=== PATIENT | female | born 1945 | race Caucasian/White ===

== ENCOUNTER 2024-11-15 11:10 | Observation (INO) ==
--- NOTE | 2024-11-15 11:37 | XRay Report ---
XR chest 1V portable CLINICAL HISTORY: Chest pain, nonspecific COMPARISON STUDY: 12/13/2022 FINDINGS: Heart size and pulmonary vasculature are normal. No effusion, consolidation, or pneumothora x. IMPRESSION: No acute findings. ACT 112: Negative or not required by law. Electronically signed by: Tunde Blanc M.D. 11/15/2024 11:36 AM
[2024-11-15 11:50] LABS: Basophils # (auto) 0.08 K/uL (0.00-0.20); Basophils % (auto) 0.7 %; Eosinophils # (auto) 0.21 K/uL (0.00-0.50); Eosinophils % (auto) 1.8 %; Hematocrit (blood only) 42.8 % (37.0-47.0); Hemoglobin 14.1 g/dl (12.0-16.0); Immature Granulocytes # (auto) 0.03 K/uL (0.01-0.20); Immature Granulocytes % (auto) 0.3 %; Lymphocytes # (auto) 4.82 K/uL (1.20-3.40); Lymphocytes % (auto) 40.3 %; Mean Corpuscular Hemoglobin 31.4 pg (25.0-34.0); Mean Corpuscular Hgb Conc 32.9 g/dL (32.0-36.0); Mean Corpuscular Volume 95.3 fL (80.0-100.0); Monocytes # (auto) 0.79 K/uL (0.11-0.59); Monocytes % (auto) 6.6 %; Neutrophils # (auto) 6.03 K/uL (1.40-6.50); Neutrophils % (auto) 50.3 %; Platelet Count 257 K/uL (130-400); RDW Coefficient of Variation 13.6 % (11.5-14.5); RDW Standard Deviation 47.8 fL (36.4-46.3); Red Blood Count 4.49 M/uL (4.20-5.40); White Blood Count 11.96 K/ul (4.8-10.8)
--- NOTE | 2024-11-15 11:58 | Emergency Department Note ---
Impression & Plan Chest pain ED Provider Note NAME: ALYCIA JIMENEZ AGE: 79 SEX: Female INFORMANT: Patient ED PROVIDER(S): Daniel Cervantes MD CHIEF COMPLAINT: Chest pain PLAN: Disposition: Admitted Outpatient prescription management: none Referral: None MEDICAL DECISION MAKING: Patient presented because of chest pain. Currently pain was resolved. She did have resolution with nitroglycerin at home. She was given aspirin and Nitropaste here. Chest x-ray was unremarkable. ECG did show a left bundle branch block. This is new. Patient has a slight leukocytosis but negative laboratory panel otherwise. On reassessment she was doing well without any recurrent pain. Discussed further management in the hospital and patient was in agreement. [facility] Patient was evaluated in the ER and admitted for further management. Care/management discussed with: business intelligence manager Level of care consideration(s): After review of the information above and other included data, I feel the patient requires escalation of care to admission Triage Nursing notes: reviewed and agree them. Vital Signs: reviewed and remarkable for hypertension Additional History obtained from: none Chronic Medical/Social Conditions affecting care: Hypertension Prior/ Outside/ External records reviewed: none Differential Diagnosis: Cardiac ischemia, aortic dissection, pulmonary embolism, pneumothorax, pneumonia, pericarditis, myocarditis, esophageal rupture, GERD, cholecystitis, pancreatitis, musculoskeletal, as well as other pathologies. Diagnostics, independently interpreted by me: ECG: Twelve-lead ECG reveals a normal sinus rhythm at 60 bpm. Left axis deviation and left bundle branch block. No Sgarbossa criteria. When compared to ECG of December 13, 2022 the left bundle branch block is new. Cardiac Monitoring: Cardiac monitoring ordered by me: The patient was placed on continuous cardiac monitoring and observed. It revealed a normal sinus rhythm at 72 beats per minute without ectopy or evidence of dysrhythmia. Medical decision rules: Patient is moderate risk by HEART SCORE. Imaging studies: Chest x-ray. Findings: A chest x-ray was performed and revealed no pneumothorax, effusion, infiltrate, pulmonary edema, free air under the diaphragm, or wide mediastinum. Impression: No acute disease. HPI: 79 year old Female arrives for evaluation of chest pain. This started over the last week and occurred again this morning several times. Patient states this was the worst episode. She did take a nitroglycerin and within 5 minutes the pain went away. She states that she was doing some mild work around the house but nothing since with significant exertion. Pain did radiate to the neck and jaw. There was a mild shortness of breath. Patient notes that a month ago she did have a bronchitis/pneumonia with typical flulike symptoms. PCP treated with antibiotic and steroid. Those symptoms resolved. The patient also notes the following associated symptoms, none. Current pain is 0. Pt denies LOC, headache, fevers, chills, diaphoresis, visual changes, nausea, vomiting, abdominal pain, back pain, melena, hematochezia, urinary symptoms, numbness, weakness, lymphadenopathy, rash, or other complaints.. PAST MEDICAL HISTORY: See Below, hypertension PAST SURGICAL HISTORY: See Below, SOCIAL HISTORY: See Below, HOME MEDICATIONS: See Below ALLERGIES: See Below VITALS: See Below PHYSICAL EXAMINATION: GENERAL: Awake, alert, well-appearing, in no distress HENT: Normocephalic, atraumatic. Oropharynx unremarkable. EYES: Normal conjunctiva. Sclera non-icteric. NECK: Inspection normal. Non-tender. Supple. No nuchal rigidity. FROM. No masses. RESPIRATORY: Clear to auscultation. No wheezes. No rales. Normal respiratory effort. CARDIAC: Normal rate. Normal rhythm. No murmurs. No rubs. Extremities warm and well perfused. Pulses equal. No JVD. GI: Soft, non-distended. No tenderness to palpation. No rebound or guarding. No masses. RECTAL: Deferred. MUSCULOSKELETAL: Atraumatic. The back is symmetrical on inspection without obvious abnormality. There is no CVA tenderness to palpation. No joint edema. LOWER EXTREMITIES: Calves are equal size bilaterally and non-tender. No edema. No discoloration. NEURO: Normal sensorium. No sensory or motor deficits noted. SKIN: No rash or jaundice noted. 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 One Story Home. Other Information That Helps Us Care for You: No Feels Safe at Home: Yes Allergies Allergies Allergy/AdvReac Type Severity Reaction Status Date / Time acetaminophen [From Vicodin] Allergy Unknown Rash Unverified 11/15/24 13:19 amoxicillin Allergy Unknown HIVES Verified 11/15/24 13:19 bee venom protein (honey bee) Allergy Unknown SWELLING Verified 11/15/24 13:19 hydrocodone [From Vicodin] Allergy Unknown Rash Unverified 11/15/24 13:19 Home Meds Home Medications Medication Instructions Recorded Confirmed aspirin 81 mg tablet,delayed 81 mg PO HS 08/05/18 11/15/24 release atorvastatin 40 mg tablet (Lipitor) 40 mg PO HS 08/05/18 11/15/24 ezetimibe 10 mg tablet 10 mg PO HS 08/05/18 11/15/24 multivitamin 1 tab PO HS 08/05/18 11/15/24 pantoprazole 20 mg tablet,delayed 20 mg PO DAILYBB 08/05/18 11/15/24 release albuterol sulfate 90 mcg/actuation 2 puff inhalation QID PRN 11/15/24 11/15/24 aerosol inhaler Wheezing/Cough ascorbic acid (vitamin C) 500 mg 500 mg PO DAILY 11/15/24 11/15/24 tablet (Vitamin C) calcium carbonate 500 mg PO DAILY 11/15/24 11/15/24 cholecalciferol (vitamin D3) 25 25 mcg PO DAILY 11/15/24 11/15/24 mcg (1,000 unit) tablet (Vitamin D3) methylprednisolone 4 mg tablet 4 mg PO DAILY 11/15/24 11/15/24 metoprolol succinate 25 mg 25 mg PO HS 11/15/24 11/15/24 tablet,extended release 24 hr montelukast 10 mg tablet 10 mg PO DAILY 11/15/24 11/15/24 nitroglycerin 0.4 mg sublingual 0.4 mg sublingual DAILY PRN Chest 11/15/24 11/15/24 tablet Pain/Pressure Results & Data (ED) Vital Signs Vital Signs - 24 hr 11/15/24 11:14 11/15/24 12:02 11/15/24 12:02 Temperature 36.6 C Temperature Source Temporal Artery Scan Pulse Rate 72 Pulse Rate [Apical] 66 Pulse Strength [Apical] Normal Respiratory Rate 18 18 Respiratory Effort / Characteristics Non-Labored Spontaneous Non-Labored Spontaneous Respiratory Depth Normal Normal Blood Pressure 141/74 H Blood Pressure [Right Arm] 147/73 H Blood Pressure Mean 96 Blood Pressure Mean [Right Arm] 97 Blood Pressure Position Sitting Pulse Oximetry 98 99 96 Oxygen Delivery Method Room Air Room Air Room Air Sepsis Recent Fever Within 48 Hours No Sepsis New/Unexplained Change in Mental Status No Sepsis Action Taken by Nursing No Action Required 11/15/24 13:12 Temperature Temperature Source Pulse Rate 65 Pulse Rate [Apical] Pulse Strength [Apical] Respiratory Rate Respiratory Effort / Characteristics Respiratory Depth Blood Pressure Blood Pressure [Right Arm] Blood Pressure Mean Blood Pressure Mean [Right Arm] Blood Pressure Position Pulse Oximetry Oxygen Delivery Method Sepsis Recent Fever Within 48 Hours Sepsis New/Unexplained Change in Mental Status Sepsis Action Taken by Nursing Laboratory Data 11/15/24 11:24 11/15/24 11:24 Lab Results 11/15/24 Range/Units 11:24 WBC 11.96 H (4.8-10.8) K/ul RBC 4.49 (4.20-5.40) M/uL Hgb 14.1 (12.0-16.0) g/dl Hct 42.8 (37.0-47.0) % MCV 95.3 (80.0-100.0) fL MCH 31.4 (25.0-34.0) pg MCHC 32.9 (32.0-36.0) g/dL RDW Std Deviation 47.8 H (36.4-46.3) fL RDW Coeff of Brayan 13.6 (11.5-14.5) % Plt Count 257 (130-400) K/uL MPV 10.0 (9.4-12.4) fL Immature Gran % (Auto) 0.3 % Neut % (Auto) 50.3 % Lymph % (Auto) 40.3 % [place] % (Auto) 6.6 % Eos % (Auto) 1.8 % Baso % (Auto) 0.7 % Neut # (Auto) 6.03 (1.40-6.50) K/uL Lymph # (Auto) 4.82 H (1.20-3.40) K/uL [place] # (Auto) 0.79 H (0.11-0.59) K/uL Eos # (Auto) 0.21 (0.00-0.50) K/uL Baso # (Auto) 0.08 (0.00-0.20) K/uL Immature Gran # (Auto) 0.03 (0.01-0.20) K/uL Sodium 140 (136-145) mmol/L Potassium 3.6 (3.5-5.1) mmol/L Chloride 105 (98-107) mmol/L Carbon Dioxide 30 (21-32) mmol/L Anion Gap 5 (3-11) BUN 19 (6-23) mg/dl Creatinine 0.90 (0.6-1.2) mg/dl Est Cr Clr Drug Dosing 37.8 ml/min eGFR 65.03 BUN/Creatinine Ratio 21.1 H (10-20) Glucose 103 H (70-99(Fasting)) mg/dl Calcium 9.2 (8.6-10.3) mg/dl Total Bilirubin 0.7 (0.2-1.0) mg/dl AST 19 (13-39) U/L ALT 30 (7-52) U/L Alkaline Phosphatase 59 (34-104) U/L Troponin I High Sens < 2.3 (0-14) pg/ml Total Protein 6.2 (6.0-8.3) gm/dl Albumin 4.0 (3.4-5.0) gm/dl Globulin 2.2 L (2.5-4.0) gm/dl Albumin/Globulin Ratio 1.8 (0.9-2) Lipase 49 (11-82) U/L Administered Medications Discontinued Medications Aspirin (Aspirin Chew 324 Mg) 324 mg PO NOW STA Stop: 11/15/24 11:46 Last Admin: 11/15/24 11:59 Dose: 324 mg Documented By: JUSTINA Nitroglycerin (Nitroglycerin 2% Ointment 30gm Tube) 0.5 inch EXT NOW STA Stop: 11/15/24 11:46 Last Admin: 11/15/24 11:59 Dose: 0.5 inch Documented By: GGG Imaging Data Radiologist's Impression: Chest X-Ray 11/15/24 11:14 XR chest 1V portable CLINICAL HISTORY: Chest pain, nonspecific COMPARISON STUDY: 12/13/2022 FINDINGS: Heart size and pulmonary vasculature are normal. No effusion, consolidation, or pneumothorax. IMPRESSION: No acute findings. ACT 112: Negative or not required by law. Electronically signed by: Tunde Blanc M.D. 11/15/2024 11:36 AM Discharge Plan Visit Data Chief Complaint: Chest Pain Stated Complaint: CHEST PAIN, NECK AND JAW PAIN, TOOK NITRO ED Provider: Daniel Cervantes Discharge Problem: Chest pain Patient Disposition: Admitted As Inpatient Discharge Instructions Interventions: ED Discharge Assessment Last Done: 11/15/24 15:18
[2024-11-15] MEDS: NITROGLYCERIN 2% OINTMENT 30GM TUBE EXT STA (11:59)
[2024-11-15] MEDS: ASPIRIN CHEW 324 MG PO STA (11:59)
[2024-11-15 12:06] LABS: Alanine Aminotransferase 30 U/L (7-52); Albumin Globulin Ratio 1.8 (0.9-2); Alkaline Phosphatase 59 U/L (34-104); Anion Gap 5 (3-11); Aspartate Aminotransferase 19 U/L (13-39); BUN Creatinine Ratio 21.1 (10-20); Bilirubin,Total 0.7 mg/dl (0.2-1.0); Blood Urea Nitrogen 19 mg/dl (6-23); Calcium 9.2 mg/dl (8.6-10.3); Carbon Dioxide 30 mmol/L (21-32); Chloride 105 mmol/L (98-107); Creatinine Clr Calc Pharmacy 37.8 ml/min; Globulin 2.2 gm/dl (2.5-4.0); Glucose 103 mg/dl (70-99(Fasting)); Lipase 49 U/L (11-82); Potassium 3.6 mmol/L (3.5-5.1); Sodium 140 mmol/L (136-145); Total Protein 6.2 gm/dl (6.0-8.3)
[2024-11-15 12:13] LABS: Troponin I High Sensitivity < 2.3 pg/ml (0-14)
--- NOTE | 2024-11-15 13:49 | Electrocardiogram Report ---
Test Reason : Blood Pressure : */* mmHG Vent. Rate : 68 BPM Atrial Rate : 68 BPM P-R Int : 156 ms QRS Dur : 152 ms QT Int : 418 ms P-R-T Axes : 30 -31 111 degrees QTcB Int : 444 ms Normal sinus rhythm Left axis deviation Left bundle branch block Abnormal ECG When compared with ECG of 13-Dec-2022 10:13, Left bundle branch block is now Present Confirmed by Maxi Bui ([id number]) on 11/15/2024 1:49:06 PM Referred By: Confirmed By: Maxi Bui
--- NOTE | 2024-11-15 14:12 | History & Physical Report ---
Date of Service November 15, 2024 Assessment & Plan (1) Chest pain: (2) LBBB (left bundle branch block): (3) Hyperlipidemia: Plan This is a 79 year old F who has a significant PMH of HLD, HTN, GERD who presents to ED 2/2 chest pain off and on over the last week. #Chest Pain #New LBBB admit to tele for cardiac monitoring and ACS r/o cycle trops obtain resting echo consult cardiology keep NPO after midnight for possible procedure lipid panel, a1c in am. 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 Branch Dispo: admit to tele for ACS r/o Pt was seen and examined in collaboration with Dr. De Leon, please see addendum I spent a total of 45 minutes coordinating, documenting and providing care for this patient excluding time spent in the performance of separately billed services or time spent by another provider/QHP. History of Present Illness Chief Complaint: Chest pain off and on for a week. Primary Care Provider: Joya Branch This is a 79 year old F who has a significant PMH of HLD, HTN, GERD who presents to ED 2/2 chest pain off and on over the last week. Pt reports CP off and on for the last week. SHe states today it was so severe and different that she wanted to get checked out. She denies hx of CAD and reports a normal stress test a few years ago. She describes it as a muscle spasm. Her pain this morning started when she was sitting at her desk paying bills. She got sweaty and pain that went from her chest to her neck/jaw and teeth. She did not notice any pain in her shoulder. She also feels a heavy/tight sensation. Today her sx lasted around 10 minutes. Sx did not last longer than 30 mins. She felt dizzy/lightheaded and SOB during the event. Pt received asa and nitropaste in the ED. She also took a SL nitro at home and sx improved. In ED she was hemodynamically stable. Her initial troponin was negative. EKG revealed NSR, LAD, LBBB. The LBBB is new compared to previous ECG. Currently in ED she denies chest pain. She has a slight headache from the nitro. She denies any recent f/c/s, cough, n/v/d, abd pain or change in her bowel and urinary habits. Most recently pt was tx with antibiotic and steroids due to illness. Hx was obtained from pt and external chart review. Allergies Allergy/AdvReac Type Severity Reaction Status Date / Time acetaminophen [From Vicodin] Allergy Unknown Rash Unverified 11/15/24 13:19 amoxicillin Allergy Unknown HIVES Verified 11/15/24 13:19 bee venom protein (honey bee) Allergy Unknown SWELLING Verified 11/15/24 13:19 hydrocodone [From Vicodin] Allergy Unknown Rash Unverified 11/15/24 13:19 Home Medications Medication Instructions Recorded Confirmed Type aspirin 81 mg tablet,delayed 81 mg PO HS 08/05/18 11/15/24 History release atorvastatin 40 mg tablet (Lipitor) 40 mg PO HS 08/05/18 11/15/24 History ezetimibe 10 mg tablet 10 mg PO HS 08/05/18 11/15/24 History multivitamin 1 tab PO HS 08/05/18 11/15/24 History pantoprazole 20 mg tablet,delayed 20 mg PO DAILYBB 08/05/18 11/15/24 History release albuterol sulfate 90 mcg/actuation 2 puff inhalation QID PRN 11/15/24 11/15/24 History aerosol inhaler Wheezing/Cough ascorbic acid (vitamin C) 500 mg 500 mg PO DAILY 11/15/24 11/15/24 History tablet (Vitamin C) calcium carbonate 500 mg PO DAILY 11/15/24 11/15/24 History cholecalciferol (vitamin D3) 25 25 mcg PO DAILY 11/15/24 11/15/24 History mcg (1,000 unit) tablet (Vitamin D3) methylprednisolone 4 mg tablet 4 mg PO DAILY 11/15/24 11/15/24 History metoprolol succinate 25 mg 25 mg PO HS 11/15/24 11/15/24 History tablet,extended release 24 hr montelukast 10 mg tablet 10 mg PO DAILY 11/15/24 11/15/24 History nitroglycerin 0.4 mg sublingual 0.4 mg sublingual DAILY PRN Chest 11/15/24 11/15/24 History tablet Pain/Pressure Past Med/Surg History Problem List LBBB (left bundle branch block) Chest pain (Acute) Medical History Syncope (07/05/11) Hyperlipidemia (07/05/11) Family History Other No pertinent family history Social History Smoking Status: Never smoker Hx Alcohol Use: No Hx Substance Use: No Preferred Language: Maldivian Feels Safe at Home: Yes Review of Systems Review of Systems: All systems reviewed & are unremarkable except as noted in HPI & below Physical Exam Physical Exam: please refer to Dr. De Leon addendum for physical exam findings. Results & Data Results & Data Vital Signs (Past 12 Hours) Vital Signs Temp Pulse Pulse Resp BP BP Pulse Ox 11/15/24 14:07 69 18 120/77 99 11/15/24 13:12 65 11/15/24 12:02 96 11/15/24 12:02 66 18 147/73 H 99 11/15/24 11:14 36.6 C 72 18 141/74 H 98 O2 Del Method 11/15/24 14:07 Room Air 11/15/24 13:12 11/15/24 12:02 Room Air 11/15/24 12:02 Room Air 11/15/24 11:14 Room Air Laboratory Results I have independently reviewed and interpreted patient's admitting labs including CBC, CMP, mag, lipase and troponin. Diagnostic Findings Chest X-Ray 11/15/24 11:14 XR chest 1V portable CLINICAL HISTORY: Chest pain, nonspecific COMPARISON STUDY: 12/13/2022 FINDINGS: Heart size and pulmonary vasculature are normal. No effusion, consolidation, or pneumothorax. IMPRESSION: No acute findings. ACT 112: Negative or not required by law. Electronically signed by: Tunde Blanc M.D. 11/15/2024 11:36 AM Medications Administered Medication List Discontinued Medications Aspirin (Aspirin Chew 324 Mg) 324 mg PO NOW STA Stop: 11/15/24 11:46 Last Admin: 11/15/24 11:59 Dose: 324 mg Documented By: JUSTINA Nitroglycerin (Nitroglycerin 2% Ointment 30gm Tube) 0.5 inch EXT NOW STA Stop: 11/15/24 11:46 Last Admin: 11/15/24 11:59 Dose: 0.5 inch Documented By: JUSTINA ECG Additional Comments: I have independently reviewed and interpreted patient's admitting EKG which revealed: NSR, 68bpm, qtc 444ms, new LBBB, LAD COVID-19 Results Results COVID-19 Adm Lab Results: RBC 4.49 M/uL (4.20-5.40) 11/15/24 WBC 11.96 K/ul (4.8-10.8) H 11/15/24 Hgb 14.1 g/dl (12.0-16.0) 11/15/24 Hct 42.8 % (37.0-47.0) 11/15/24 Plt Count 257 K/uL (130-400) 11/15/24 Neutrophils (%) (Auto) 50.3 % 11/15/24 Lymphocytes (%) (Auto) 40.3 % 11/15/24 Monocytes # (Auto) 0.79 K/uL (0.11-0.59) H 11/15/24 Eosinophils # (Auto) 0.21 K/uL (0.00-0.50) 11/15/24 Immature Granulocyte % (Auto) 0.3 % 11/15/24 Neutrophils # (Auto) 6.03 K/uL (1.40-6.50) 11/15/24 Lymphocytes # (Auto) 4.82 K/uL (1.20-3.40) H 11/15/24 Monocytes # (Auto) 0.79 K/uL (0.11-0.59) H 11/15/24 Eosinophils # (Auto) 0.21 K/uL (0.00-0.50) 11/15/24 Basophils # (Auto) 0.08 K/uL (0.00-0.20) 11/15/24 Immature Granulocyte # (Auto) 0.03 K/uL (0.01-0.20) 5 Na 140 mmol/L (136-145) 11/15/24 K 3.6 mmol/L (3.5-5.1) 11/15/24 Cl 105 mmol/L (98-107) 11/15/24 CO2 30 mmol/L (21-32) 11/15/24 Anion Gap 5 (3-11) 11/15/24 BUN 19 mg/dl (6-23) 11/15/24 Creatinine 0.90 mg/dl (0.6-1.2) 11/15/24 BUN/Creatinine Ratio 21.1 (10-20) H 11/15/24 Glucose Level 103 mg/dl (70-99(Fasting)) H 11/15/24 Ca 9.2 mg/dl (8.6-10.3) 11/15/24 Total Bilirubin 0.7 mg/dl (0.2-1.0) 11/15/24 AST/SGOT 19 U/L (13-39) 11/15/24 ALT/SGPT 30 U/L (7-52) 11/15/24 Alkaline Phosphatase 59 U/L (34-104) 11/15/24 Total Protein 6.2 gm/dl (6.0-8.3) 11/15/24 Albumin 4.0 gm/dl (3.4-5.0) 11/15/24 Globulin 2.2 gm/dl (2.5-4.0) L 11/15/24 Albumin/Globulin Ratio 1.8 (0.9-2) 11/15/24 Chest X-Ray 11/15/24 Code Status & VTE Plan Code Status FULL CODE VTE Prophylaxis Plan VTE Prophylaxis will be ordered: Yes Supervising Physician Co-Signing Physician Notes Patient is a 79-year-old female with history of hypertension, hyperlipidemia, GERD presents with ongoing chest pain since at least 1 year duration. Patient's chest pain is been more frequent over the last week. She states having significant chest pain this morning which she describes as left-sided heaviness, radiating to jaw, neck. She did admit to have associated dizziness with mild shortness of breath. She received aspirin and nitro in ED, currently chest pain resolved. Please review HPI for complete details of presentation. I personally reviewed blood work and imaging studies. Blood work suggestive of leukocytosis 12.96K. Initial troponin negative. EKG showed left bundle branch block, new when compared to prior EKGs. Please review HPI for complete details of presentation. Physical Exam: Vitals signs as noted above General Appearance:Moderately built and nourished, no apparent distress Head: normocephalic, Atraumatic Eyes: normal inspection, EOMI Neck: supple, Trachea midline Respiratory/Chest: Normal breath sounds, CTA, No accessory muscle use Cardiovascular: S1, S2, No murmur Abdomen/GI:Soft, Non tender, Bowel sounds present Extremities/Musculoskeletal:normal inspection, no edema Neurologic/Psych:AAOX3, grossly no focal neurological deficits,+decreased hearing Skin: normal color, warm Chest pain Left bundle branch block Hypertension GERD Initial troponin negative Agree with checking resting echo N.p.o. after midnight for stress test tomorrow Cardiology consulted Continue aspirin, Lipitor, metoprolol Trend troponins, consider IV heparin if troponin elevation Repeat EKG with chest pain Update lipid panel, check HbA1c I personally interviewed and examined at bedside. Patient's care is coordinated with Erica Pacheco PA-C. I have reviewed the advanced practitioner's documentation, and I agree with plan of care. Please refer to the documentation above for details of patient's presentation and for discussion of other issues. I spent a total [id number] coordinating, documenting, and providing care for this patient excluding time spent in the performance of separately billed services or time spent by another provider/QHP.
[2024-11-15] MEDS ORDERED: POLYETHYLENE (MIRALAX) 17 GM PACK PO PRN (16:14)
--- NOTE | 2024-11-15 16:32 | Cardiology Consultation ---
Date of Consultation November 15, 2024 Assessment & Plan (1) Chest pain: (2) LBBB (left bundle branch block): (3) Hyperlipidemia: Plan Patient is 79-year-old female with multiple cardiovascular risk factors with prior history of atypical chest pain now presents with symptoms more consistent with exertional angina now with worsening symptoms at low level activity and rest. Symptoms today with mild diaphoresis and lightheadedness relieved by nitroglycerin. EKG with new left bundle branch block. Initial troponins negative. Echocardiogram without wall motion abnormality. Impression: 1. Chest pain: Initially exertional now with low-level activity and at rest. 2. New left bundle branch block 3. Dyslipidemia Recommendations: Discussed above findings in detail with patient. Given near rest symptoms and crescendo nature and complaints would recommend proceeding wit h diagnostic coronary angiography. Left bundle branch block limits evaluation by stress testing and EKG evaluation with future complaint. Procedure explained and patient agrees. Will be kept n.p.o. after midnight History of Present Illness Reason for Consultation: Exertional chest pain, new left bundle branch block [facility] Attending Physician: Ulises De Leon MD History of Present Illness Patient is a 79-year-old female with multiple cardiovascular risk factors including hypertension, longstanding hyperlipidemia and family history of premature coronary disease as well as prior cardiac catheterization with mild nonobstructive disease in 2011. Patient presented to the ER for further evaluation noting gradually increasing exertional dyspnea and chest pressure and chest tightness radiating to both shoulders with ambulation. Symptoms consistently reproduced by exercise with rare episodes at rest. Patient with more profound episode this morning while sitting working. Experienced symptoms of chest pressure as well as mild diaphoresis and lightheadedness. Symptoms did respond to sublingual nitroglycerin. Due to complaints patient sought ER evaluation with initial EKG left bundle branch block configuration (new) Currently asymptomatic. Has been treated recently for upper respiratory infection with antibiotic as wel l as corticosteroid. No bleeding issues no melena medic easier dysuria hematuria. Currently no fevers or chills. No orthopnea or worsening peripheral edema. No prior known history of conduction system disease. Last stress testing 2019 Allergies Allergy/AdvReac Type Severity Reaction Status Date / Time acetaminophen [From Vicodin] Allergy Unknown Rash Unverified 11/15/24 13:19 amoxicillin Allergy Unknown HIVES Verified 11/15/24 13:19 bee venom protein (honey bee) Allergy Unknown SWELLING Verified 11/15/24 13:19 hydrocodone [From Vicodin] Allergy Unknown Rash Unverified 11/15/24 13:19 Home Medications Medication Instructions Recorded Confirmed Type aspirin 81 mg tablet,delayed 81 mg PO HS 08/05/18 11/15/24 History release atorvastatin 40 mg tablet (Lipitor) 40 mg PO HS 08/05/18 11/15/24 History ezetimibe 10 mg tablet 10 mg PO HS 08/05/18 11/15/24 History multivitamin 1 tab PO HS 08/05/18 11/15/24 History pantoprazole 20 mg tablet,delayed 20 mg PO DAILYBB 08/05/18 11/15/24 History release albuterol sulfate 90 mcg/actuation 2 puff inhalation QID PRN 11/15/24 11/15/24 History aerosol inhaler Wheezing/Cough ascorbic acid (vitamin C) 500 mg 500 mg PO DAILY 11/15/24 11/15/24 History tablet (Vitamin C) calcium carbonate 500 mg PO DAILY 11/15/24 11/15/24 History cholecalciferol (vitamin D3) 25 25 mcg PO DAILY 11/15/24 11/15/24 History mcg (1,000 unit) tablet (Vitamin D3) methylprednisolone 4 mg tablet 4 mg PO DAILY 11/15/24 11/15/24 History metoprolol succinate 25 mg 25 mg PO HS 11/15/24 11/15/24 History tablet,extended release 24 hr montelukast 10 mg tablet 10 mg PO DAILY 11/15/24 11/15/24 History nitroglycerin 0.4 mg sublingual 0.4 mg sublingual DAILY PRN Chest 11/15/24 11/15/24 History tablet Pain/Pressure Patient History Medical History Syncope (07/05/11) Hyperlipidemia (07/05/11) Family History Other No pertinent family history Social History Smoking Status: Never smoker Hx Alcohol Use: No Hx Substance Use: No Preferred Language: [place] Feels Safe at Home: Yes Physical Exam Constitutional: well developed; no acute distress Eyes: PERRL, conjunctivae normal, anicteric sclerae ENMT: external ear and nose normal, oropharynx normal Neck: trachea midline, no thyromegaly Respiratory: normal respiratory effort, lungs clear to auscultation Cardiovascular: Rate/Rhythm: regular rate and regular rhythm Heart Sounds: normal S1 and normal S2 Vessels: femoral pulses present and radial pulses present; no JVD and no femoral bruit Extremities: no edema Gastrointestinal (Abdomen): normal bowel sounds, soft, nontender, no hepatosplenomegaly Musculoskeletal: no cyanosis or clubbing, extremities motor strength 5/5 Results & Data Vital Signs (Past 12 Hours) Vital Signs Temp Pulse Pulse Resp BP BP Pulse Ox 11/15/24 14:07 69 18 120/77 99 11/15/24 13:12 65 11/15/24 12:02 96 11/15/24 12:02 66 18 147/73 H 99 11/15/24 11:14 36.6 C 72 18 141/74 H 98 O2 Del Method 11/15/24 14:07 Room Air 11/15/24 13:12 11/15/24 12:02 Room Air 11/15/24 12:02 Room Air 11/15/24 11:14 Room Air Laboratory Results Laboratory Results - last 24 hr 11/15/24 11/15/24 11:24 14:37 WBC 11.96 H RBC 4.49 Hgb 14.1 Hct 42.8 MCV 95.3 MCH 31.4 MCHC 32.9 RDW Std Deviation 47.8 H RDW Coeff of Brayan 13.6 Plt Count 257 MPV 10.0 Immature Gran % (Auto) 0.3 Neut % (Auto) 50.3 Lymph % (Auto) 40.3 [place] % (Auto) 6.6 Eos % (Auto) 1.8 Baso % (Auto) 0.7 Neut # (Auto) 6.03 Lymph # (Auto) 4.82 H [place] # (Auto) 0.79 H Eos # (Auto) 0.21 Baso # (Auto) 0.08 Immature Gran # (Auto) 0.03 Sodium 140 Potassium 3.6 Chloride 105 Carbon Dioxide 30 Anion Gap 5 BUN 19 Creatinine 0.90 Est Cr Clr Drug Dosing 37.8 eGFR 65.03 BUN/Creatinine Ratio 21.1 H Glucose 103 H Calcium 9.2 Total Bilirubin 0.7 AST 19 ALT 30 Alkaline Phosphatase 59 Troponin I High Sens < 2.3 4.0 Total Protein 6.2 Albumin 4.0 Globulin 2.2 L Albumin/Globulin Ratio 1.8 Lipase 49
--- OUTSIDE RECORDS SUMMARY | 2024-11-15 19:18 | External Medical Summary ---
Author Name Unknown Address Unknown Organization K01:[facility] - [address] [place] [address] Laboratory Report Ordering Provider Test Date Status LANA GRAY 08/16/2024 08:37:07 Final Observation Date Value Abnormality Reference (Units ) Status LDL, (direct) 08/16/2024 08:37:07 78 <=129 (mg/dL) Final LDL Cholesterol Reference Ra nges (mg/dL):
<70 Target level for high risk ASCVD patient
<100 Optimal for general population
100-129 Near optimal for general population
130-159 Borderline high
160-189 High
>=190 Very high Performing Location [facility] - [address] [place] [address]
--- OUTSIDE RECORDS SUMMARY | 2024-11-15 19:18 | External Medical Summary ---
Author Name Unknown Address Unknown Organization [id number][place] [facility] [place] [address] [facility] [address] Laboratory Report Ordering Provider Test Date Status LANA GRAY 08/16/2024 08:37:07 Final Observation Date Value Abnormality Reference (Units ) Status BUN 08/16/2024 08:37:07 16 6-20 (mg/dL) Final Creatinine 08/16/2024 08:37:07 1.0 0.5-1.0 (mg/dL) Final Glomerular filtration rate/1.73 sq M.predicted [Volume Rate/Area] in Serum, Plasma or Blood by Creatinine-based formula (CKD-EPI) 08/16/2024 08:37:07 61 >=60 (mL/min) Final eGFR is calculated based on the CKD-EPI 2020 equation. Sodium 08/16/2024 08:37:07 142 135-146 (m mol/L) Final Potassium 08/16/2024 08:37:07 4.7 3.5-5.1 (m mol/L) Final Cl 08/16/2024 08:37:07 105 98-107 (mm ol/L) Final CO2 08/16/2024 08:37:07 26 22-32 (mmo l/L) Final Anion gap 08/16/2024 08:37:07 11 7-15 (mmol /L) Final Glucose 08/16/2024 08:37:07 105 70-120 (mg /dL) Final Albumin 08/16/2024 08:37:07 4.1 3.8-5.0 (g /dL) Final AST (Aspartate aminotransferase) 08/16/2024 08:37:07 18 10-35 (U/L) Final Alk Phos 08/16/2024 08:37:07 85 35-130 (U/ L) Final Bilirubin, Total 08/16/2024 08:37:07 0.5 <=1 .2 (mg/dL) Final Calcium 08/16/2024 08:37:07 9.4 8.4-10.2 ( mg/dL) Final Protein 08/16/2024 08:37:07 6.1 6.0-8.3 (g /dL) Final ALT (Alanine aminotransferase) 08/16/2024 08:37:07 29 10-35 (U/L) Final Performing [place] [facility] [place] [address] [facility] [address]
--- OUTSIDE RECORDS SUMMARY | 2024-11-15 19:18 | External Medical Summary | Summary of Care ---
Author Name Unknown Organization [facility] Address [address] [place] [address] Phone [phone] Care Team Providers Care Director Of Clinical Education Name Role Phone Meg Branch MD Primary Care Provider [phone] Encounter Details Date Type Department Care Team (Late st Contact Info) Description 11/12/2024 Population Health External Data Unspecified Department Allergies Active Allergy Reactions Criticality Noted Date Comments Amoxicillin 02/12/2009 Rash Bee Venom Edema Other Medium 03/20/2013 Hydrocodone-Acetaminophen 09/06/2018 documented as of this encounter (statuses as of 11/12/2024) Medications ASPIRIN TABS 81 MG ORIndications:D yslipidemia, goal LDL below 160 one tab by mouth daily 34 5 1 Active CALCIUM 1200 7462-6366 MG-UNIT PO CHEW one tablet daily Active EPIPEN 0.3 MG/0.3ML (1:1000) IM DEVIIndications :Toxic effect of venom(989.5) Inject for life-threatening allergy symptoms and go immediately to the Emergency Room. 1 3 8 Active Additional Information Patient not taking.Reported on 03/19/2020 MULTIVITAMINS PO TABS daily Active ezetimibe (ZETIA) 10 MG Tablet Take 1 Tablet by mouth in the morning. Active pantoprazole (PROTONIX) 40 MG TBEC Take 1 Tablet by mouth in the morning. Active atorvaSTATin (LIPITOR) 40 MG Tablet Take 1 Tablet by mouth in the morning. Active metoprolol tartrate (LOPRESSOR) 25 MG Tablet Take 1 Tablet by mouth in the morning. Active Pantoprazole Sodium 20 MG Oral Tablet Delayed Release (Protonix) take one tablet by mouth one half hour before breakfast as needed 90 Tablet 1 09/10/2024 3:19 PM EST 4 Active Atorvastatin Calcium 40 MG Oral Tablet (Lipitor) take one tablet by mouth at bedtime 90 Tablet 1 08/23/2024 1:40 PM EDT 4 Active Ezetimibe 10 MG Oral Tablet (Zetia) take one tablet by mouth at bedtime 90 Tablet 1 09/10/2024 2:58 PM EST 4 Active Metoprolol Succinate ER 25 MG Oral Tablet Extended Release 24 Hour (toPROL XL) TAKE ONE TABLET BY MOUTH AT BEDTIME 90 Tablet 1 09/26/2024 9:18 AM EST 4 Active Montelukast Sodium 10 MG Oral Tablet (Singulair) take one tablet by mouth in the evening for allergies 90 Tablet 1 08/22/2024 10:23 AM EDT 4 Active documented as of this encounter (statuses as of 11/12/2024) Active Problems Problem Noted Date Diagnosed Date Meningioma 07/19/2012 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 Toxic effect of venom 07/22/2008 Overview (07/27/2016): large local reactions only. ICD-10 update of inactive term DIFFUS CYSTIC MASTOPATHY Uterine leiomyoma Headache Overview (01/14/2016): ICD-10 update of inactive term Chest pain documented as of this encounter (statuses as of 11/12/2024) Resolved Problems Problem Noted Date Diagnosed Date Resolved Date PURE HYPERCHOLESTEROLEM 09/23 Overview (10/02/2009): Per Lipid Taxonomy. documented as of this encounter (statuses as of 11/12/2024) Immunizations Name Administration Dates Next Due Pneumococcal Polysaccharide PPV23 (Pneumovax) documented as of this encounter Social History Tobacco Use Types Packs/Day Years Used Date Smoking Tobacco: Never Smokeless Tobacco: Never Comments:no passive smoke Alcohol Use Standard Drinks/Week Comments Yes 0 (1 standard drink = 0.6 oz pur e alcohol) 1-2 drinks/week Comments No Sex and Gender Information Value Date Recorded Sex Assigned at Female 05/06/2023 1:51 PM EDT Legal Sex Female 5:26 AM EST Gender Identity Female 05/06/2023 1:51 PM EDT Sexual Orientation Straight 11/21/2023 4: 44 PM EST documented as of this encounter Functional Status * Are you deaf or do you have serious difficulty hearing? Answer Date of Assessment Author No 09/27/2018 8:00 AM Johana Lorenz GERALD * Are you blind or do you have serious difficulty seeing, even when wearing glasses? Answer Date of Assessment Author No 09/27/2018 8:00 AM Johana Lorenz GERALD * Do you have serious difficulty walking or climbing stairs? (5 years old or older) Answer Date of Assessment Author No 09/27/2018 8:00 AM Johana Lorenz GERALD * Do you have difficulty dressing or bathing? (5 years old or older) Answer Date of Assessment Author No 09/27/2018 8:00 AM Johana Lorenz GERALD * Because of a physical, mental, or emotional condition, do you have difficulty doing errands alone such as visiting a doctors office or shopping? (15 years old or older) Answer Date of Assessment Author No 09/27/2018 8:00 AM Johana Lorenz GERALD documented as of this encounter Mental Status * Because of a physical, mental, or emotional condition, do you have serious difficulty concentrating, remembering, or making decisions? (5 years old or older) Answer Entry Date Author No 09/27/2018 8:00 AM Johana Lorenz GERALD documented in this encounter Plan of Treatment Health Maintenance Due Date Last Done Comments Depression Screening 1957 Hepatitis C Screening 1963 DTap/Tdap Vaccines (1 - Tdap) 1964 Zoster Vaccines (1 of 2) 1995 Pneumococcal Vaccine: 50+ Years (2 of 2 - PCV) 07/24/2011 07/24/2010 COVID-19 Vaccine (2023- season) 2024 Influenza Vaccine (FLU shot) (#1) 2024 DXA Scan 02/28/2030 02/28/2023, 050 05/2023, 08/25/2020, Additional history exists HPV (Gardasil) Vaccine Aged Out No lo nger eligible based on patient's age to complete this topic Hepatitis B Vaccine Aged Out No longe r eligible based on patient's age to complete this topic MENINGOCOCCAL (MENACTRA/MENVEO) Aged Out No longer eligible based on patient's age to complete this topic documented as of this encounter Medical Devices Implanted Type Area Auto Body Mechanic Device Identifier Shelf Expiration Date Model / Serial / Lot Lens Li61ao 13.00mm 23.50 - [id number] - [id number] Implanted:Qty: 1 on 02/16/2024 by Channing Bell MD at OR [facility] Left: Eye [employer] 08/23/2028 [id number] / [id number] / [id number] Lens Li61ao 13.00mm 23.50 - [id number] - [id number] Implanted:Qty: 1 on 02/23/2024 by Channing Bell MD at OR [facility] Right: Eye [employer] 08/23/2028 [id number] / [id number] / [id number] documented as of this encounter Advance Directives * Full Code (Latest Code Status on File) Date Activated Date Inactivated Comments 02/23/2024 8:00 AM 02/23/2024 1:49 PM This order ref lects the patients wishes and were consensually agreed upon. Question Answer Comments Discussion of Advance Directives occurred with: Patient Does the patient have a Living Will? No Does the patient have Health Care Power of Attor yenifer? No * Full Code Date Activated Date Inactivated Comments 02/16/2024 2:00 PM 02/16/2024 8:18 PM This order r eflects the patients wishes and were consensually agreed upon. Question Answer Comments Discussion of Advance Directives occurred with: Patient Does the patient have a Living Will? No Does the patient have Health Care Power of Attor yenifer? No Care Teams Director Of Clinical Education Relationship Specialty Start Date End Date Meg Branch MD [address] [place] [address] [place] [id number] PCP - General 09/22/01 documented as of this encounter
--- OUTSIDE RECORDS SUMMARY | 2024-11-15 19:18 | External Medical Summary ---
Author Name Unknown Address Unknown Organization K01:[facility] [place] [address] [place] [address] Laboratory Report Ordering Provider Test Date Status JAMIR SANCHEZ 08/16/2024 08:37:07 Final Observation Date Value Abnormality Reference (Units ) Status MYCODE SPECIMEN-SST 08/16/2024 08:37:07 Freezing of extracted DNA, whole blood and/or serum. Final Performing Location [facility] [place] [address] [facility] [address]
--- OUTSIDE RECORDS SUMMARY | 2024-11-15 19:18 | External Medical Summary | Summary of Care ---
Author Name Unknown Organization [facility] Address [address] [place] [address] Phone [phone] Care Team Providers Care Panel Machine Tender Name Role Phone Meg Branch MD Primary Care Provider [phone] Reason for Visit * Reason Comments Outpatient Testing Encounter Details Date Type Department Care Team (Late st Contact Info) Description 08/16/2024 8:30 AM EDT Laboratory Laboratory [address] [place] [id number] [place] [id number] [employer] Other*[id number]; Dyslipidemia, goal LDL below 160; HTN, goal below 140/90 Allergies Active Allergy Reactions Criticality Noted Date Comments Amoxicillin 02/12/2009 Rash Bee Venom Edema Other Medium 03/20/2013 Hydrocodone-Acetaminophen 09/06/2018 documented as of this encounter (statuses as of 08/16/2024) Medications Medication Sig Dispensed Refills Start Date End Date Status ASPIRIN TABS 81 MG ORIndications:Dysli pidemia, goal LDL below 160 one tab by mouth daily 34 5 04/06/2001 Active CALCIUM 1200 4896-6043 MG-UNIT PO CHEW one tablet daily Active EPIPEN 0.3 MG/0.3ML (1:1000) IM DEVIIndications:Tox ic effect of venom(989.5) Inject for life-threatening allergy symptoms and go immediately to the Emergency Room. 1 3 07/22/2008 Active Additional Information Patient not taking.Reported on [...] Tablet by mouth in the morning. Active Atorvastatin Calcium 40 MG Oral Tablet (Lipitor) take one tablet by mouth at bedtime 90 Tablet 1 03/23/2024 Active Ezetimibe 10 MG Oral Tablet (Zetia) take one tablet by mouth at bedtime 90 Tablet 1 03/23/2024 Active Metoprolol Succinate ER 25 MG Oral Tablet Extended Release 24 Hour (toPROL XL) TAKE ONE TABLET BY MOUTH AT BEDTIME 90 Tablet 1 03/23/2024 Active Pantoprazole Sodium 20 MG Oral Tablet Delayed Release (Protonix) take one tablet by mouth one half hour before breakfast as needed 90 Tablet 1 03/23/2024 Active Montelukast Sodium 10 MG Oral Tablet (Singulair) take one tablet by mouth in the evening for allergies 90 Tablet 1 05/22/2024 Active documented as of this encounter (statuses as of 08/16/2024) Active Problems Problem Noted Date Diagnosed Date Meningioma 07/19/2012 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 Toxic effect of venom 07/22/2008 Overview: large local reactions only. ICD-10 update of inactive term DIFFUS CYSTIC MASTOPATHY Uterine leiomyoma Headache Overview: ICD-10 update of inactive term Chest pain documented as of this encounter (statuses as of 08/16/2024) Resolved Problems Problem Noted Date Diagnosed Date Resolved Date PURE HYPERCHOLESTEROLEM 09/23 Overview: Per Lipid Taxonomy. documented as of this encounter (statuses as of 08/16/2024) Immunizations Name Administration Dates Next Due Pneumococcal Polysaccharide PPV23 (Pneumovax) documented as of this encounter Social History Tobacco Use Types Packs/Day Years Used Date Smoking Tobacco: Never Smokeless Tobacco: Never Comments:no passive smoke Alcohol Use Standard Drinks/Week Comments Yes 0 (1 standard drink = 0.6 oz pur e alcohol) 1-2 drinks/week Utilities Answer Date Recorded Do you have trouble paying y our heating, water, or electric bill? (Adult - for ages 18 years and over) Not on file 04/10/2024 Is your family able to pay t he heat, water, or electric bill? (Household - for ages 0-17 years) Not on file 04/10/2024 Does your family have access to good internet? (Household - for ages 0-17 years) Not on file 04/10/2024 Social Connections Answer Date Recorded How often do you feel lonely or isolated from those around you? (Adult - for ages 18 years and over) Not on file 04/10/2024 Sex and Gender Information Value Date Recorded Sex Assigned at Female 05/06/2023 1:51 PM EDT Gender Identity Female 05/06/2023 1:51 PM EDT Sexual Orientation Straight 11/21/2023 4: 44 PM EST Job Start Date Occupation Industry Not on file Not on file Not on file documented as of this encounter Functional Status Functional Status Response Date of Assess ment Are you deaf or do you have serious difficulty h earing? No 09/27/2018 Are you blind or do you have serious difficulty seeing, even when wearing glasses? No 09/27/2018 Do you have serious difficul ty walking or climbing stairs? (5 years old or older) No 09/27/2018 Do you have difficulty dress ing or bathing? (5 years old or older) No 09/27/2018 Because of a physical, menta l, or emotional condition, do you have difficulty doing errands alone such as visiting a doctor s office or shopping? (15 years old or older) No 09/27/20 18 Cognitive Status Response Date of Assessm ent Because of a physical, menta l, or emotional condition, do you have serious difficulty concentrating, remembering, or making decisions? (5 years old or older) No 09/27/2018 documented as of this encounter Plan of Treatment Pending Results Name Type Priority Associated Diagnoses Date /Time MYCODE SUBSEQUENT ADULT Lab Routine [employer] Other*[id number] 08/16/2024 8:37 AM EDT LIPID PANEL WITH DIRECT LDL IF TG IS HIGH Lab Routine Dyslipidemia, goal LDL below 160 HTN, goal below 140/90 08/16/2024 8:37 AM EDT COMPREHENSIVE METABOLIC PANEL Lab Routine Dyslipidemia, goal LDL below 160 HTN, goal below 140/90 08/16/2024 8:37 AM EDT MYCODE SST1 Lab Routine [employer] Other*[id number] 08/16/2024 8:37 AM EDT MYCODE SST2 Lab Routine [employer] Other*[id number] 08/16/2024 8:37 AM EDT Health Maintenance Due Date Last Done Comments Depression Screening 1957 Hepatitis C Screening 1963 DTap/Tdap Vaccines (1 - Tdap) 1964 Zoster Vaccines (1 of 2) 1995 Pneumococcal Vaccine: 65+ Years (2 of 2 - PCV) 07/24/2011 07/24/2010 COVID-19 Vaccine (1 - season) 2024 Influenza Vaccine (FLU shot) (#1) 2024 DXA Scan 02/28/2030 02/28/2023, 05/0 05/2023, 08/25/2020, Additional history exists HPV (Gardasil) [...] this encounter Medical Devices Implanted Type Area Financial Systems Analyst Device Identifier Shelf Expiration Date Model / Serial / Lot Lens Li61ao 13.00mm 23.50 - [id number] - [id number] Implanted:Qty: 1 on 02/16/2024 by Channing Bell MD at OR [facility] Left: Eye [employer] 08/23/2028 [id number] / [id number] / [id number] Lens Li61ao 13.00mm 23.50 - [id number] - [id number] Implanted:Qty: 1 on 02/23/2024 by Channing Bell MD at OR [facility] Right: Eye [employer] 08/23/2028 [id number] / [id number] / [id number] documented as of this encounter Visit Diagnoses Diagnosis [employer] Other*[id number] Dyslipidemia, goal LDL below 160 Other and unspecified hyperlipidemia HTN, goal below 140/90 Unspecified essential hypertension documented in this encounter Advance Directives * Full Code [...] Power of Attor yenifer? No Care Teams Panel Machine Tender Relationship Specialty Start Date End Date Meg Branch MD [address] [place] [address] [place] [address] PCP - General 09/22/01 documented as of this encounter
--- OUTSIDE RECORDS SUMMARY | 2024-11-15 19:18 | External Medical Summary | Summary of Care ---
Author Name Unknown Organization [facility] Address [address] [place] [address] Phone [phone] Care Team Providers Care Application Security Developer Name Role Phone Meg Branch MD Primary Care Provider [phone] Reason for Visit * Reason Comments Outpatient Testing Encounter Details Date Type Department Care Team (Late st Contact Info) Description 08/16/2024 8:30 AM EDT Laboratory Laboratory [address] [place] [id number] [place] [address] [employer] Other*[id number]; Dyslipidemia, goal LDL below 160; HTN, goal [...] daily 34 5 04/06/2001 Active CALCIUM 1200 9426-3662 MG-UNIT PO CHEW one tablet daily Active [...] MYCODE SUBSEQUENT ADULT Lab Routine [employer] Other*[id number] 08/16/2024 8:37 AM EDT LIPID PANEL WITH DIRECT LDL IF TG IS HIGH Lab Routine Dyslipidemia, goal LDL below 160 HTN, goal below 140/90 08/16/2024 8:37 AM EDT COMPREHENSIVE METABOLIC PANEL Lab Routine Dyslipidemia, goal LDL below 160 HTN, goal below 140/90 08/16/2024 8:37 AM EDT MYCODE SST1 Lab Routine [employer] Other*[id number] 08/16/2024 8:37 AM EDT MYCODE SST2 Lab Routine [employer] Other*[id number] 08/16/2024 8:37 AM EDT Health Maintenance Due [...] this encounter Medical Devices Implanted Type Area Paper Bundler Device Identifier Shelf Expiration Date Model / Serial / Lot Lens Li61ao 13.00mm 23.50 - [id number] - [id number] Implanted:Qty: 1 on 02/16/2024 by Channing Bell MD at OR [facility] Left: Eye [employer] 08/23/2028 [id number] / [id number] / [id number] Lens Li61ao 13.00mm 23.50 - [id number] - [id number] Implanted:Qty: 1 on 02/23/2024 by Channing Bell MD at OR [facility] Right: Eye [employer] 08/23/2028 [id number] / [id number] / [id number] documented as of this encounter Visit Diagnoses Diagnosis [employer] Other*[id number] Dyslipidemia, goal LDL below 160 Other and [...] Power of Attor yenifer? No Care Teams Application Security Developer Relationship Specialty Start Date End Date Meg Branch MD [address] [place] [address] [place] [id number] PCP - General 09/22/01 documented as of this encounter
--- OUTSIDE RECORDS SUMMARY | 2024-11-15 19:18 | External Medical Summary | Summary of Care ---
Author Name Unknown Organization [facility] Address [address] [place] [address] Phone [phone] Care Team Providers Care Teletype Adjuster Name Role Phone Meg Branch MD Primary Care Provider [phone] Reason for Visit * Reason Comments Outpatient Testing Encounter Details Date Type Department Care Team (Late st Contact Info) Description 08/16/2024 8:30 AM EDT Laboratory Laboratory [address] [place] [id number] [place] [address] [employer] Other*[id number]; Dyslipidemia, goal LDL below 160; HTN, goal [...] daily 34 5 04/06/2001 Active CALCIUM 1200 5803-1405 MG-UNIT PO CHEW one tablet daily Active [...] MYCODE SUBSEQUENT ADULT Lab Routine [employer] Other*[id number] 08/16/2024 8:37 AM EDT LIPID PANEL WITH DIRECT LDL IF TG IS HIGH Lab Routine Dyslipidemia, goal LDL below 160 HTN, goal below 140/90 08/16/2024 8:37 AM EDT COMPREHENSIVE METABOLIC PANEL Lab Routine Dyslipidemia, goal LDL below 160 HTN, goal below 140/90 08/16/2024 8:37 AM EDT MYCODE SST1 Lab Routine [employer] Other*[id number] 08/16/2024 8:37 AM EDT MYCODE SST2 Lab Routine [employer] Other*[id number] 08/16/2024 8:37 AM EDT Health Maintenance Due [...] this encounter Medical Devices Implanted Type Area Waxing Machine Operator Helper Device Identifier Shelf Expiration Date Model / Serial / Lot Lens Li61ao 13.00mm 23.50 - [id number] - [id number] Implanted:Qty: 1 on 02/16/2024 by Channing Bell MD at OR [facility] Left: Eye [employer] 08/23/2028 [id number] / [id number] / [id number] Lens Li61ao 13.00mm 23.50 - [id number] - [id number] Implanted:Qty: 1 on 02/23/2024 by Channing Bell MD at OR [facility] Right: Eye [employer] 08/23/2028 [id number] / [id number] / [id number] documented as of this encounter Visit Diagnoses Diagnosis [employer] Other*[id number] Dyslipidemia, goal LDL below 160 Other and [...] Power of Attor yenifer? No Care Teams Teletype Adjuster Relationship Specialty Start Date End Date Meg Branch MD [address] [place] [address] [place] [id number] PCP - General 09/22/01 documented as of this encounter
--- OUTSIDE RECORDS SUMMARY | 2024-11-15 19:18 | External Medical Summary ---
Author Name Unknown Address Unknown Organization [id number]:[facility] [place] [address] [place] [address] Laboratory Report Ordering Provider Test Date Status JAMIR SANCHEZ 08/16/2024 08:37:07 Final Observation Date Value Abnormality Reference (Units ) Status MYCODE SPECIMEN-SST 08/16/2024 08:37:07 Freezing of extracted DNA, whole blood and/or serum. Final Performing Location [facility] [place] [address] [facility] [address]
[2024-11-15] MEDS: EZETIMIBE 10 MG TAB PO SCH (20:35)
[2024-11-15] MEDS: METOPROLOL SUCC 25MG EXT REL TAB PO SCH (20:35)
[2024-11-15] MEDS: MULTIVITAMIN TAB PO SCH (20:36)
[2024-11-15] MEDS: ATORVASTATIN 40 MG TAB PO SCH (20:36)
[2024-11-15] MEDS ORDERED: MELATONIN 3 MG TAB PO PRN (21:00)
[2024-11-15] MEDS: ACETAMINOPHEN 500 MG TAB PO PRN (21:04)
[2024-11-15] MEDS: HEPARIN SOD 5,000 UNIT/0.5 ML VIAL SQ SCH (21:05)
[2024-11-16] MEDS: PANTOprazole 40 MG TAB PO SCH (06:40)
[2024-11-16] MEDS: MONTELUKAST SODIUM 10 MG TABLET PO SCH (08:16)
[2024-11-16] MEDS: methylPREDNISolone 4 MG TAB PO SCH (08:17)
--- NOTE | 2024-11-16 10:39 | Cardiology Progress Note ---
Date of Service November 16, 2024 Assessment & Plan (1) Chest pain: (2) LBBB (left bundle branch block): (3) Hyperlipidemia: Plan Patient is 79-year-old female with multiple cardiovascular risk factors with prior history of atypical chest pain now presents with symptoms more consistent with exertional angina now with worsening symptoms at low level activity and rest. Symptoms today with mild diaphoresis and lightheadedness relieved by nitroglycerin. EKG with new left bundle branch block. Initial troponins negative. Echocardiogram without wall motion abnormality. Impression: 1. Chest pain: Initially exertional now with low-level activity and at rest. 2. New left bundle branch block 3. Dyslipidemia Recommendations: Discussed above findings in detail with patient. Given near rest symptoms and crescendo nature and complaints would recommend proceeding with diagnostic coronary angiography. Left bundle branch block limits evaluation by stress testing and EKG evaluation with future complaint. Procedure explained and patient agrees. Will be kept n.p.o. after midnight 11/16/2024 No symptoms overnight but concerns remain for underlying ischemic heart disease. Patient scheduled for diagnostic coronary angiography today. Procedure and risks explained in detail to the patient and informed consent obtained. Admission and Anticipated Discharge Date Admission Date: November 15, 2024 Subjective Patient seen and examined, chart, medications, telemetry reviewed No further chest pain or discomfort overnight. EKG resolved the left bundle branch block but with T wave inversion anterior precordial leads. Physical Exam Constitutional: well developed; no acute distress Eyes: PERRL, conjunctivae normal, anicteric sclerae ENMT: external ear and nose normal, oropharynx normal Neck: trachea midline, no thyromegaly Respiratory: normal respiratory effort, lungs clear to auscultation Cardiovascular: Rate/Rhythm: regular rate and regular rhythm Heart Sounds: normal S1 and normal S2 Vessels: femoral pulses present and radial pulses present; no JVD and no femoral bruit Extremities: no edema Gastrointestinal (Abdomen): normal bowel sounds, soft, nontender, no hepato splenomegaly Musculoskeletal: no cyanosis or clubbing, extremities motor strength 5/5 Results & Data Vital Signs (Past 12 Hours) Vital Signs Temp Pulse Pulse Resp BP BP Pulse Ox 11/16/24 09:36 62 18 140/86 96 11/16/24 07:58 36.5 C 71 20 118/70 94 11/16/24 03:24 36.9 C 61 19 114/72 96 11/16/24 01:20 80 11/15/24 23:06 36.8 C 68 18 109/60 94 O2 Del Method 11/16/24 09:36 Room Air 11/16/24 07:58 Room Air 11/16/24 03:24 Room Air 11/16/24 01:20 11/15/24 23:06 Room Air
--- NOTE | 2024-11-16 10:41 | Pre Anesthesia Assessment ---
Date of Service November 16, 2024 Pre Sedation Assessment Vital Signs Temp Pulse Pulse Resp BP BP Pulse Ox 11/16/24 09:36 62 18 140/86 96 11/16/24 07:58 36.5 C 71 20 118/70 94 11/16/24 03:24 36.9 C 61 19 114/72 96 11/16/24 01:20 80 11/15/24 23:06 36.8 C 68 18 109/60 94 11/15/24 20:15 36.7 C 90 18 125/76 93 11/15/24 16:32 36.7 C 65 16 150/74 H 95 11/15/24 16:30 70 11/15/24 14:07 69 18 120/77 99 11/15/24 13:12 65 11/15/24 12:02 96 11/15/24 12:02 66 18 147/73 H 99 11/15/24 11:14 36.6 C 72 18 141/74 H 98 O2 Del Method 11/16/24 09:36 Room Air 11/16/24 07:58 Room Air 11/16/24 03:24 Room Air 11/16/24 01:20 11/15/24 23:06 Room Air 11/15/24 20:15 Room Air 11/15/24 16:32 Room Air 11/15/24 16:30 11/15/24 14:07 Room Air 11/15/24 13:12 11/15/24 12:02 Room Air 11/15/24 12:02 Room Air 11/15/24 11:14 Room Air Cardiovascular RRR, no murmur, no edema + femoral pulses present and + radial pulses present; no JVD no edema Respiratory normal respiratory effort, lungs clear to auscultation Pre-Sedation Airway Assessment Smoking Status: Never smoker Hx Sleep Apnea: No Short, Thick Neck: No Thyromental Distance: > or= 3.5 Finger Breadths Oral Cavity: + Dentures Mallampati Class: III ASA: ASA3 NPO Status Date of Last Intake of Fluids: 11/16/24 Last Oral Intake of Fluids Comment: Meds with sips this morning Date of Last Intake of Solid Food: 11/15/24 Procedure Planning Contraindications for Sedation: none Current Medications Reviewed: Yes Notes The planned sedation has been discussed with the patient. Informed Consent was obtained. I have identified the patient, determined the appropriateness of sedation and have assessed the patient immediately prior to the procedure. All medicine(s) and interventions are by my order.
--- NOTE | 2024-11-16 11:31 | Electrocardiogram Report ---
Test Reason : Blood Pressure : */* mmHG Vent. Rate : 64 BPM Atrial Rate : 64 BPM P-R Int : 154 ms QRS Dur : 82 ms QT Int : 400 ms P-R-T Axes : 27 43 -8 degrees QTcB Int : 412 ms Normal sinus rhythm Abnormal ECG When compared with ECG of 15-Nov-2024 11:20, Left bundle branch block is no longer Present Confirmed by Maxi Bui ([id number]) on 11/16/2024 11:30:54 AM Referred By: REFERRED SELF Confirmed By: Maxi Bui
--- NOTE | 2024-11-16 11:43 | Cardiac Catheterization ---
Cardiac Cath Procedure Brief Procedure Date November 16, 2024 Pre-Procedure Diagnosis Pre-Procedure Diagnosis: Angina AUC Score AUC Score: 7 Post-Procedure Diagnosis Post-Procedure Diagnosis: Severe CAD Procedure(s) Performed Procedure(s) Performed: Coronary Angiography [facility] Michael Maldonado MD Enrobing Machine Operator(s) Tunde Sterling Estimated Blood Loss Estimated Blood Loss: <15cc Medication(s) Medication(s): Fentanyl (12.5 mcg IV), Heparin (5000 units IV), Lidocaine 1% (Local infiltration access site), Nicardipine (250 mcg intra-arterial after arterial sheath insertion) and Versed (1 mg IV) Preliminary Findings Impression: Single-vessel significant coronary disease with proximal left anteri or descending 80%. Moderate diffuse luminal regularities other vasculature Procedure: Coronary angiography via right radial access Catheters: 6 [place] slender radial sheath, 5 [place] Procedural notes: Radial access gained using ultrasonic guidance. Wire resistance met at the antecubital fossa transitioned without difficulty with Glidewire. Coronary angiography: Right dominant anatomy Left main: Normal length and caliber with minimal calcification and no obstruction Left anterior descending:: Type III in distribution. Gives rise to a bifurcating septal branch shortly after its origin a second septal branch at the end of its proximal third large multi branching diagonal branch in its midportion and courses to terminate just beyond the apex. Within the left anterior descending there is a discrete eccentric stenosis of 80% proximal to the second septal branch the distal vessel is thin in its apical portion. Left circumflex: Moderately large nondominant vessel consisting of 2 bifurcating obtuse marginals there is no disease. Right coronary artery: Moderate caliber vessel giving rise to a conus branch at its origin 2 small right ventricular branches in its midportion. At the AV groove it gives rise to a thin posterior sending artery. Along the AV groove gives rise to 3 small posterior ventricular branches. There are mild luminal regularities throughout the vasculature LV angiography: Not performed Recommendations Recommendations: PCI without planned CABG Specimens Specimens: None Anesthesia Start time: 1109, stop time: 1132 Procedural Complication(s) None Disposition PCI same setting
[2024-11-16] MEDS: NITROGLYCERIN/D5W 100MCG/ML 20ML SYR ONE (11:48)
[2024-11-16] MEDS: niCARdipine 2,000 MCG/20 ML SYR ONE (11:48)
--- NOTE | 2024-11-16 11:54 | Cardiac Catheterization ---
Cardiac Cath Procedure Full Procedure Date November 16, 2024 Pre-Procedure Diagnosis Pre-Procedure Diagnosis: Angina AUC Score AUC Score: 8 Post-Procedure Diagnosis Post-Procedure Diagnosis: Severe CAD (Single-vessel) Procedure(s) Performed Procedure(s) Performed: Coronary Angiography Extermination Inspector Michael Maldonado MD Sock Knitter(s) Tunde Sterling Estimated Blood Loss Estimated Blood Loss: <15cc Medication(s) Medication(s): Fentanyl (12.5 mcg IV), Heparin (5000 units IV), Lidocaine 1% (Local infiltration access site), Nicardipine (250 mcg intra-arterial after arterial sheath insertion) and Versed (1 mg IV) Summary of Findings Impression: Single-vessel significant coronary disease with proximal left anterior descending 80%. Moderate diffuse luminal regularities other vasculature Procedure: Coronary angiography via right radial access Catheters: 6 Italian slender radial sheath, 5 Italian [place] Procedural notes: Radial access gained using ultrasonic guidance. Wire resistance met at the antecubital fossa transitioned without difficulty with Glidewire. Coronary angiography: Right dominant anatomy Left main: Normal length and caliber with minimal calcification and no obstruction Left anterior descending:: Type III in distribution. Gives rise to a bifurcating septal branch shortly after its origin a second septal branch at the end of its proximal third large multi branching diagonal branch in its midportion and courses to terminate just beyond the apex. Within the left anterior descending there is a discrete eccentric stenosis of 80% proximal to the second septal branch the distal vessel is thin in its apical portion. Left circumflex: Moderately large nondominant vessel consisting of 2 bifurcating obtuse marginals there is no disease. Right coronary artery: Moderate caliber vessel giving rise to a conus branch at its origin 2 small right ventricular branches in its midportion. At the AV groove it gives rise to a thin posterior sending artery. Along the AV groove gives rise to 3 small posterior ventricular branches. There are mild luminal regularities throughout the vasculature LV angiography: Not performed Hemodynamics Rest Ao:: 164/81/116 Final Ao: 164/79/113 LV: N/A Recommendations Recommendations: PCI without planned CABG Specimens Specimens: None Radiation Exposure (mGy) 305 Contrast (mls) 50 Anesthesia Start time: 1109, stop time: 1132 Procedural Complication(s) None Disposition PCI same setting I attest to the content of the Intraoperative Record and any orders documented therein. Any exceptions are noted below. ACC Data: Fitness Specialist Cardiac Status Clinical evaluation leading to the procedure 79-year-old female with multiple cardiovascular risk factors presenting with symptoms consistent with crescendo exertional angina followed by single episode at rest yesterday. Initial cardiac enzymes negative. EKG with new left bundle branch block with resolve CAD Presenation: Unstable angina Anginal Classification: CCS IV Heart Failure: No Cardiogenic Shock within 24 Hours: No Cardiac Arrest within 24 Hours: No Imaging Studies Past 6 Months: Yes Stress Studies Past 6 Months: No Standard Exercise Test: No Stress Echocardiogram: No Stress Testing w/SPECT MPI: No Cardiac CTA: No Coronary Anatomy Dominant: Right Left Main (% Stenosis): Normal LAD (% Stenosis): Proximal (80) and Distal (Thin with diffuse mild irregularities) D1 (% Stenosis): Normal Circumflex (% Stenosis): Normal OM1 (% Stenosis): Normal OM2 (% Stenosis): Normal RCA (% Stenosis): Mid (Mild luminal regularities) R PDA (% Stenosis): Mid R PL1 (% Stenosis): Normal R PL2 (% Stenosis): Normal AM (% Stenosis): Normal Diagnostic Physicians Name: Michael Maldonado MD Status: Urgent Closure Device Percutaneous Entry Location: Radial Recommendations: PCI without planned CABG
[2024-11-16] MEDS: fentaNYL citrate PF 100 MCG/2 ML VIAL ONE ×2 (12:17→12:19)
--- NOTE | 2024-11-16 12:17 | Post Anesthesia Assessment ---
Date of Service November 16, 2024 Post Sedation Assessment Vital Signs Temp Pulse Pulse Resp BP BP Pulse Ox 11/16/24 09:36 62 18 140/86 96 11/16/24 07:58 36.5 C 71 20 118/70 94 11/16/24 03:24 36.9 C 61 19 114/72 96 11/16/24 01:20 80 11/15/24 23:06 36.8 C 68 18 109/60 94 11/15/24 20:15 36.7 C 90 18 125/76 93 11/15/24 16:32 36.7 C 65 16 150/74 H 95 11/15/24 16:30 70 11/15/24 14:07 69 18 120/77 99 11/15/24 13:12 65 O2 Del Method 11/16/24 09:36 Room Air 11/16/24 07:58 Room Air 11/16/24 03:24 Room Air 11/16/24 01:20 11/15/24 23:06 Room Air 11/15/24 20:15 Room Air 11/15/24 16:32 Room Air 11/15/24 16:30 11/15/24 14:07 Room Air 11/15/24 13:12 Recovery Score Activity: Moves 4 extremities Respiration: Deep Breath/Cough Circulation: +/-20% PreAnes Value Consciousness: Fully Awake Oxygen Saturation: > 92% On Room Air Discharge Sedation Level of Care: Fast Track Phase II Post Sedation Plan On clinical assessment, the patient appears to have tolerated the sedation without complications. Patient is recovering as anticipated. Patient will continue to be monitored by nursing and may be discharged when sedation discharge criteria are met per below protocol. Upon Completions of procedure up to 15 minutes continue every 5 minute vital signs and the P.A.R. score; then discharge to a Phase I or Fast Track to Phase II per the following guidelines: * Discharge Patient to appropriate Phase II area if PAR is 8 or greater or return to pre- procedure baseline. The post - procedure orders will be as directed. * If PAR score is less than 8 or not return to pre-procedure baseline then patient will follow Phase I monitoring till PAR is reached for Phase II. The Phase I may be done in procedure room or may call to secure a Phase I area. * If naloxone or flumazenil are used for reversal, hold in Phase I for continued monitoring from when last reversal dose was given for a minimum of 60 minutes or longer pending the nurse and/or physician discretion of patient condition before discharge to Phase II. Please call the Sedation Physician to re-evaluate and complete post-note for discharge to Phase II area. Do NOT discharge from procedure sedation or Phase 1 until post- sedation evaluation note is complete by procedure /sedation MD Sedation Discharge Instructions to be given to the patient at discharge to home. [facility] [place] Codes (Charges) Indication for Procedure Indication for procedure: angina severe CAD Sedation/Anesthesia Procedure 1: Sedation/Anesthesia: 26607 Mod Sedation by a different physician ;Init15 Min Child Age 5&Up (Initial 15 minutes, baker second. Start time 1132) Total Sedation Time (minutes): 35 Procedure 2: Sedation/Anesthesia: 90732 Mod Sedation by a different physician;Ea Additional 15 Minutes (Additional 20 minutes, baker second. End time 1207) Total Sedation Time (minutes): 35
[2024-11-16] MEDS: MIDAZOLAM HCL 1 MG/ML 2ML VIAL ONE (12:18)
[2024-11-16] MEDS: HEPARIN (PORCINE) 1000 UNIT/ML 10 ML (CATH LAB USE ONLY) ONE (12:18)
[2024-11-16] MEDS: hydrALAZINE HCL 20 MG/ML VIAL ONE (12:18)
[2024-11-16] MEDS: OPTIRAY 350 ONE (12:18)
[2024-11-16] MEDS: ASPIRIN 81 MG CHEW ONE (12:19)
[2024-11-16] MEDS: EPTIFIBATIDE 2 MG/ML 10 ML VIAL (CATH LAB USE ONLY) IV ONE (12:19)
[2024-11-16] MEDS: CLOPIDOGREL BISULFATE 300 MG TAB ONE (12:19)
[2024-11-16] MEDS: EPTIFIBATIDE 0.75 MG/ML 75MG VIAL (CATH LAB USE ONLY) IV ONE (12:20)
[2024-11-16] MEDS ORDERED: EPTIFIBATIDE BOLUS/DRIP IV STA (12:22)
[2024-11-16] MEDS ORDERED: STAT IV Infusion **Titration per Protocol STA (12:22)
[2024-11-16] MEDS ORDERED: MoRPHine SULFATE 2 MG/ML CARP IV PRN (12:24)
[2024-11-16] MEDS: ONDANSETRON INJ 2 MG/ML 2 ML VIAL IV PRN (12:47)
--- NOTE | 2024-11-16 13:21 | Cardiac Catheterization ---
[facility] Data: Mink Farmer Cardiac Status Clinical evaluation leading to the procedure CAD Presenation: Stable angina Anginal Classification: CCS III Heart Failure: No Cardiogenic Shock within 24 Hours: No Cardiac Arrest within 24 Hours: No Imaging Studies Past 6 Months: Yes Coronary Anatomy LAD (% Stenosis): Proximal (80%. See diagnostic catheter report for details.) Diagnostic Physicians Name: Jonatan Lemos MD, PhD Closure Device Percutaneous Entry Location: Radial Closure Device: Radial Band Recommendations: PCI without planned CABG PCI Indication: Stable Angina Lesion Segment Name: Proximal LAD Culprit Artery: Yes Stenosis Prior to Rx (%): 80% Chronic Total Occlusion: No Pre-Procedure PAUL Flow: 3 Previously Treated Lesion: No Lesion Complexity: Non-High/Non-C Lesion Length (mm): 10 Thrombus Present: No Bifurcation Lesion: Yes Guidewire Across Lesion: Yes Intraprocedure Events Significant Disection: No Perforation: No Cardiac Cath Procedure Full Procedure Date November 16, 2024 Pre-Procedure Diagnosis Pre-Procedure Diagnosis: Angina AUC Score AUC Score: 7 Post-Procedure Diagnosis Post-Procedure Diagnosis: Successful PCI Procedure(s) Performed Procedure(s) Performed: Drug Eluting Stent Network Planner Jonatan Lemos MD, PhD Estimated Blood Loss Estimated Blood Loss: 5 cc Medication(s) Medication(s): Clopidogrel, Fentanyl, Heparin, Integrilin, Nitroglycerin and Versed Summary of Findings Brief description: Patient was already shaved and prepped in a sterile fashion. She had a 6 Guamanian radial artery sheath in place. She had already been sedated by Dr. Maldonado for the diagnostic case. See his report for details. ACT was intermittently checked and additional heparin was provided as needed to maintain therapeutic anticoagulation. A 5 [place]amanian EBU 3.0 guide catheter was used to engage the left main coronary. A BMW reversal guidewire was advanced under fluoroscopic guidance and positioned distally in the LAD A 2.5 x 12 mm trek balloon was used to predilate the lesion at 6 monica followed by 10 monica. A 2.5 x 15 mm Zen drug-eluting stent was then positioned across the lesion and deployed at 14 monica followed by a second inflation to 15 monica. Coronary angiography was performed. Patient was having chest pain secondary to jailed diagonal branch. Patient was provided additional pain medication, intracoronary nitroglycerin, and started on Integrilin (double bolus administration) followed by a drip. Also loaded with additional aspirin and 600 mg Plavix p.o. I attempted to cross the stent struts into the jailed branch but was unsuccessful. The branch is small and likely would not have been amenable to PCI in any case. The guidewire was removed and final angiographic evaluation was performed. Guide catheter was then removed. Radial artery sheath was removed and hemostasis was obtained using a TR band. Patient had chest pain and was provided fentanyl. She was hemodynamically stable although somewhat hypertensive and transported to the holding area for recovery and observation. This ended the case. PCI of proximal LAD 80% stenosis is reduced to 0% stenosis post PCI. Stent extends from the proximal into the mid segment. There is PAUL-3 flow post PCI No evidence of dissection or perforation post PCI Jailed small diagonal branch. PAUL I flow but not amenable to PTCA. Summary: 1. Successful PCI of the proximal to mid LAD. The small diagonal branch is jailed and causes some acute chest discomfort. No significant complications noted. 2. She will remain on dual antiplatelet therapy with aspirin 325 mg daily and Plavix 75 mg daily. For the next 12 hours post PCI and jailed sidebranch patient will remain on Plavix, Integrilin, morphine for pain control, and aspirin. If needed we could also place her back on a heparin drip after the radial band is removed. She will likely have resolution of her symptoms and I am hoping medical management will reopen flow into that sidebranch. 3. Guideline directed medical therapy for secondary prevention to include; aspirin, high intensity statin therapy, beta-oliva, plus or minus GREG inhibitor/ARB as tolerated. Additional antianginals as needed. Exact regimen will be left to the primary wood buffer. Hemodynamics Rest Ao:: 164/79 mmHg Final Ao: 148/80 mmHg LV: Not performed Recommendations Recommendations: PCI without planned CABG Specimens Specimens: None Radiation Exposure (mGy) 1703 mGy, fluoroscopy time 14.1 minutes Contrast (mls) 155 cc Anesthesia 1 mg Versed, 50 mcg fentanyl IV. start time: 1132, end time: 1207 Procedural Complication(s) None Disposition Mink Farmer Holding/Recovery I attest to the content of the Intraoperative Record and any orders documented therein. Any exceptions are noted below. OnitG Card Cath Procedure Codes Moderate Sedation Procedure 1: Sedation/Anesthesia: 03011 Mod Sedation by a different physician ;Init15 Min Child Age 5&Up (Initial 15 minutes, english as a second language teacher. Start time 1132) Procedure 2: Sedation/Anesthesia: 36648 Mod Sedation by a different physician;Ea Additional 15 Minutes (Additional 20 minutes, english as a second language teacher. End time 1207) Stenting Procedure 1: Cardiovascular Stent Procedures: 32527 Perc transcatheter placement of intracoronary stent(s), with ang (LAD) PG Care Time/CCT Total # of Minutes Spent Total Time Spent with Patient: Total time spent is greater than 50% in coordination of care (as documented) at patient's floor/unit and/or counseling patient:
[2024-11-16] MEDS: EPTIFIBATIDE 75 MG/100 ML VIAL IV SCH (13:41)
[2024-11-16] MEDS: NITROGLYCERIN 2% OINTMENT 30GM TUBE EXT STA (14:08)
--- NOTE | 2024-11-16 14:50 | Hospitalist Progress Note ---
Date of Service November 16, 2024 Assessment & Plan (1) Unstable angina pectoris due to coronary arteriosclerosis: (2) Single vessel coronary artery disease: (3) LBBB (left bundle branch block): (4) Hyperlipidemia: Plan Patient presented with unstable angina due to LAD lesion. Patient is status postcardiac cath with stenting of the LAD. Patient did have some postprocedural chest pain treated with topical nitrates. Patient requires ongoing hospital level care and monitoring. Reviewed cardiology notes and cardiac cath. Continue Integrilin per their orders Anticipate dual antiplatelet therapy starting tomorrow Continue beta-oliva Continue post procedure care Family at bedside updated Admission and Anticipated Discharge Date Admission Date: November 15, 2024 Subjective Patient seen postcardiac cath. Tolerated procedure. Some chest pain postprocedure resolved with Nitropaste Physical Exam Physical Exam: Constitutional: Alert, nontoxic in appearance HEENT: Mucous membranes moist. Lungs: Clear to auscultation, decreased, no wheezes rales or rhonchi CV: S1-S2, regular Abdomen: Soft, nontender, nondistended Extremities: No significant edema, wrist compression tourniquet still in place, good capillary refill in fingers Neuro: No focal deficits Psych: Cooperative, normal mood Results & Data Results & Data Vital Signs (Past 12 Hours) Vital Signs Temp Pulse Pulse Resp BP BP BP 11/16/24 14:31 72 18 98/61 L 11/16/24 12:43 65 18 125/53 L 11/16/24 12:34 94 H 16 125/64 11/16/24 09:36 62 18 140/86 11/16/24 07:58 36.5 C 71 20 118/70 11/16/24 03:24 36.9 C 61 19 114/72 Pulse Ox O2 Del Method 11/16/24 14:31 93 Room Air 11/16/24 12:43 93 Room Air 11/16/24 12:34 96 Room Air 11/16/24 09:36 96 Room Air 11/16/24 07:58 94 Room Air 11/16/24 03:24 96 Room Air Diagnostic Findings Reviewed imaging, laboratory and diagnostic studies. Pertinent findings as below. Reviewed cardiac catheterization report, significant LAD lesion with stent placement Reviewed Echocardiogram. Ejection fraction 60 to 65% with normal wall motion Troponin postprocedure less than 2.3, negative times multiple sets
--- NOTE | 2024-11-16 15:41 | Communication Note ---
Date of Service: November 16, 2024 79-year-old female presented with crescendo angina symptoms. Underwent coronary angiography which demonstrated single-vessel obstructive coronary disease with 80% proximal left anterior descending stenosis. Patient received drug-eluting stent with good clinical result. Small jailed diagonal branch. Clinically stable. Recommendations: Dual antiplatelet therapy with aspirin and clopidogrel uninterrupted minimum of 6 months Continue prehospital atorvastatin, ezetimibe, metoprolol Cardiac rehab referral
[2024-11-16 16:40] LABS: Basophils # (auto) 0.05 K/uL (0.00-0.20); Basophils % (auto) 0.4 %; Eosinophils # (auto) 0.06 K/uL (0.00-0.50); Eosinophils % (auto) 0.5 %; Hematocrit (blood only) 42.1 % (37.0-47.0); Immature Granulocytes # (auto) 0.04 K/uL (0.01-0.20); Immature Granulocytes % (auto) 0.4 %; Lymphocytes # (auto) 2.03 K/uL (1.20-3.40); Lymphocytes % (auto) 18.2 %; Mean Corpuscular Hemoglobin 31.2 pg (25.0-34.0); Mean Corpuscular Hgb Conc 33.3 g/dL (32.0-36.0); Mean Corpuscular Volume 93.8 fL (80.0-100.0); Mean Platelet Volume 9.9 fL (9.4-12.4); Monocytes # (auto) 0.56 K/uL (0.11-0.59); Neutrophils # (auto) 8.43 K/uL (1.40-6.50); Neutrophils % (auto) 75.5 %; Platelet Count 259 K/uL (130-400); RDW Coefficient of Variation 13.6 % (11.5-14.5); RDW Standard Deviation 46.4 fL (36.4-46.3); Red Blood Count 4.49 M/uL (4.20-5.40); White Blood Count 11.17 K/ul (4.8-10.8)
[2024-11-16 16:58] LABS: Calcium 8.6 mg/dl (8.6-10.3); Chol HDL Ratio 3.2 (0-5); Creatinine Clr Calc Pharmacy 46.5 ml/min; Magnesium 2.1 mg/dl (1.7-2.4); Potassium 4.3 mmol/L (3.5-5.1)
[2024-11-16 17:38] LABS: Estimated Average Glucose 134 mg/dl; Hemoglobin A1C 6.3 % (4.5-5.6)
[2024-11-16] MEDS ORDERED: ASPIRIN 81 MG ECTAB PO SCH (21:00)
[2024-11-17 07:23] LABS: Basophils # (auto) 0.05 K/uL (0.00-0.20); Basophils % (auto) 0.5 %; Eosinophils # (auto) 0.15 K/uL (0.00-0.50); Eosinophils % (auto) 1.5 %; Hematocrit (blood only) 41.4 % (37.0-47.0); Hemoglobin 13.6 g/dl (12.0-16.0); Immature Granulocytes # (auto) 0.05 K/uL (0.01-0.20); Immature Granulocytes % (auto) 0.5 %; Lymphocytes # (auto) 3.07 K/uL (1.20-3.40); Lymphocytes % (auto) 29.7 %; Mean Corpuscular Hemoglobin 30.9 pg (25.0-34.0); Mean Corpuscular Hgb Conc 32.9 g/dL (32.0-36.0); Mean Corpuscular Volume 94.1 fL (80.0-100.0); Mean Platelet Volume 9.8 fL (9.4-12.4); Monocytes # (auto) 0.74 K/uL (0.11-0.59); Monocytes % (auto) 7.2 %; Neutrophils # (auto) 6.28 K/uL (1.40-6.50); Neutrophils % (auto) 60.6 %; Platelet Count 233 K/uL (130-400); RDW Coefficient of Variation 13.8 % (11.5-14.5); RDW Standard Deviation 47.7 fL (36.4-46.3); White Blood Count 10.34 K/ul (4.8-10.8)
[2024-11-17 07:33] LABS: BUN Creatinine Ratio 20.7 (10-20); Calcium 9.1 mg/dl (8.6-10.3); Potassium 4.2 mmol/L (3.5-5.1)
[2024-11-17] MEDS: ASPIRIN 325 MG ECTAB PO SCH (08:40)
[2024-11-17] MEDS: CLOPIDOGREL BISULFATE 75 MG TAB PO SCH (08:40)
--- NOTE | 2024-11-17 10:45 | Cardiology Progress Note ---
Date of Service November 17, 2024 Assessment & Plan (1) Single vessel coronary artery disease: (2) Unstable angina pectoris due to coronary arteriosclerosis: (3) LBBB (left bundle branch block): (4) Hyperlipidemia: Plan -HR and BP well controlled -no recurrent chest pain overnight -will see how she does today, encourage ambulation in the hallways -given mildy low BP will hold off on GREG/ARB for now -continue atorvastatin, ASA, Plavix, Zetia, and Toprol -will need DAPT for at least 6 months -I have asked nursing to ambulate the patient in the hallway to see if she has any recurrent chest discomfort if she is able to ambulate without any issues reasonable for her to be discharged home with outpatient follow-up -If she develops chest discomfort have coordinated with the hospitalist service and recommend starting isosorbide 30 mg daily with continued monitoring overnight Case coordinated with Dr. Thomson, see attestation for additional recommendations JEREMIAH Aburto Department of Cardiology, [facility] This chart was completed in part utilizing Speech Voice Recognition Software. Grammatical errors, random word insertions, pronoun errors, and incomplete sentences are an occasional consequence of this system due to software limitations, ambient noise, and hardware issues. Any formal questions or concerns about the content, text, or information contained within the body of this dictation should be directly addressed to the provider for clarification. Admission and Anticipated Discharge Date Admission Date: November 15, 2024 Supervising Physician Co-Signing Physician Notes I have reviewed the advanced practitioner's documentation on the date of service referenced in note, and I agree with, and take responsibility for the plan of care. I spent a total of [20 ] minutes coordinating, documenting, and providing care for this patient excluding time spent in the performance of separately billed services or time spent by another provider. Subjective 79 year old female seen in cardiology follow up in regard to angina/CAD s/p LAD PCI. Did have some post stent chest discomfort which has now resolved. Also had 1 episode of chest discomfort this morning resolved with 1 sublingual nitro and has not reoccurred. Does notice some heartburn type symptoms with eating Review of Systems Review of Systems: All systems reviewed & are unremarkable except as noted in HPI & below Constitutional: no fever, no chills and no weakness Respiratory: no cough and no dyspnea on exertion Cardiovascular: + chest pain; no palpitations, no syncop e and no edema Gastrointestinal: no abdominal pain, no nausea and no vomiting Physical Exam Constitutional: WD/WN, vitals as above well developed and well nourished; not ill appearing Eyes: PERRL, conjunctivae normal, anicteric sclerae ENMT: external ear and nose normal, oropharynx normal Neck: trachea midline, no thyromegaly Respiratory: normal respiratory effort, lungs clear to auscultation Cardiovascular: RRR, no murmur, no edema Heart Sounds: normal S1 and normal S2; no murmur Vessels: no JVD Musculoskeletal: no cyanosis or clubbing, extremities motor strength 5/5 Psychiatric: A+Ox3, euthymic affect Results & Data Vital Signs (Past 12 Hours) Vital Signs Temp Pulse Pulse Resp BP BP Pulse Ox 11/17/24 07:30 66 11/17/24 07:00 36.7 C 75 16 106/63 94 11/17/24 03:03 36.8 C 78 18 121/71 95 11/16/24 23:20 36.7 C 75 16 103/62 92 11/16/24 22:41 69 O2 Del Method 11/17/24 07:30 11/17/24 07:00 Room Air 11/17/24 03:03 Room Air 11/16/24 23:20 Room Air 11/16/24 22:41 Laboratory Results Lipids 11/16/24 Range/Units 16:05 Triglycerides 180 H (0-150) mg/dl Cholesterol 152 (0-200) mg/dl HDL Cholesterol 48 mg/dl Cholesterol/HDL Ratio 3.2 (0-5) CBC 11/16/24 11/17/24 Range/Units 16:06 06:47 WBC 11.17 H 10.34 (4.8-10.8) K/ul RBC 4.49 4.40 (4.20-5.40) M/uL Hgb 14.0 13.6 (12.0-16.0) g/dl Hct 42.1 41.4 (37.0-47.0) % Plt Count 259 233 (130-400) K/uL Neut # (Auto) 8.43 H 6.28 (1.40-6.50) K/uL Lymph # (Auto) 2.03 3.07 (1.20-3.40) K/uL [place] # (Auto) 0.56 0.74 H (0.11-0.59) K/uL Eos # (Auto) 0.06 0.15 (0.00-0.50) K/uL Baso # (Auto) 0.05 0.05 (0.00-0.20) K/uL Comprehensive Metabolic Panel 11/16/24 11/17/24 Range/Units 16:05 06:47 Sodium 141 139 (136-145) mmol/L Potassium 4.3 4.2 (3.5-5.1) mmol/L Chloride 106 104 (98-107) mmol/L Carbon Dioxide 28 27 (21-32) mmol/L BUN 17 18 (6-23) mg/dl Creatinine 0.74 0.87 (0.6-1.2) mg/dl Glucose 128 H 105 H (70-99(Fasting)) mg/dl Calcium 8.6 9.1 (8.6-10.3) mg/dl Intake and Output 11/16/24 11/17/24 11/17/24 22:59 06:59 14:59 Intake Total 125 / 465 340 / 465 Output Total 300 / 900 600 / 900 Balance -175 / -435 -260 / -435 Intake: IV 100 / 100 Eptifibatide 75 mg In 100 ml @ 100 / 100 1 MCG/KG/MIN 4.648 mls/hr IV . [id number] [facility] Rx#:[id number] Oral 125 / 365 240 / 365 Output: Urine 600 / 600 Urine Amount (Catheter) 300 / 300 External 300 / 300 Other: # Unmeasured Voids 1 Weight 59.6 kg Weight Measurement Method Built in [facility] Current Inpatient Medications Acetaminophen (Acetaminophen 500 Mg Tab) 500 mg PO Q6H PRN PRN Reason: pain/fever Stop: 12/15/24 16:13 Last Admin: 11/17/24 08:40 Dose: 500 mg Aspirin (Aspirin 325 Mg Ectab) 325 mg PO [facility] Stop: 12/17/24 08:59 Last Admin: 11/17/24 08:40 Dose: 325 mg Atorvastatin Calcium (Atorvastatin 40 Mg Tab) 40 mg PO [facility] Stop: 12/15/24 20:59 Last Admin: 11/16/24 21:32 Dose: 40 mg Clopidogrel Bisulfate (Clopidogrel Bisulfate 75 Mg Tab) 75 mg PO [facility] Stop: 12/17/24 08:59 Last Admin: 11/17/24 08:40 Dose: 75 mg Ezetimibe (Ezetimibe 10 Mg Tab) 10 mg PO HS [facility] Stop: 12/15/24 20:59 Last Admin: 11/16/24 21:31 Dose: 10 mg Melatonin (Melatonin 3 Mg Tab) 6 mg PO HS PRN PRN Reason: Sleep Stop: 12/15/24 20:59 Methylprednisolone (Methylprednisolone 4 Mg Tab) 4 mg PO DAILY [facility] Stop: 11/18/24 09:01 Last Admin: 11/17/24 08:40 Dose: 4 mg Metoprolol Succinate (Metoprolol Succ 25mg Ext Rel Tab) 25 mg PO HS [facility] Stop: 12/15/24 20:59 Last Admin: 11/16/24 21:31 Dose: Not Given Montelukast Sodium (Montelukast Sodium 10 Mg Tablet) 10 mg PO DAILY [facility] Stop: 12/16/24 08:59 Last Admin: 11/17/24 08:40 Dose: 10 mg Morphine Sulfate (Morphine Sulfate 2 Mg/Ml Carp) 2 mg IV Q1HWA PRN PRN Reason: Pain Stop: 11/30/24 12:59 Multivitamins (Multivitamin Tab) 1 tab PO HS [facility] Stop: 12/15/24 20:59 Last Admin: 11/16/24 21:31 Dose: 1 tab Ondansetron HCl (Ondansetron Inj 2 Mg/Ml 2 Ml Vial) 4 mg IV Q6H PRN PRN Reason: Nausea Stop: 12/15/24 16:13 Last Admin: 11/17/24 00:28 Dose: 4 mg Pantoprazole Sodium (Pantoprazole 40 Mg Tab) 40 mg PO DAILYBB [facility] Stop: 12/16/24 06:29 Last Admin: 11/17/24 06:35 Dose: 40 mg Polyethylene Glycol (Polyethylene (Miralax) 17 Gm Pack) 17 gm PO DAILY PRN PRN Reason: Constipation Stop: 12/15/24 16:13 Diagnostic Findings Echocardiogram 11/15/24 EF 60-65% Mild Aortic Sclerosis, no stenosis Mild concentric LVH Cardiac Cath: 11/16/24 Coronary angiography: Right dominant anatomy Left main: Normal length and caliber with minimal calcification and no obstruction Left anterior descending:: Type III in distribution. Gives rise to a bifurcating septal branch shortly after its origin a second septal branch at the end of its proximal third large multi branching diagonal branch in its midportion and courses to terminate just beyond the apex. Within the left anterior descending there is a discrete eccentric stenosis of 80% proximal to the second septal branch the distal vessel is thin in its apical portion. Left circumflex: Moderately large nondominant vessel consisting of 2 bifurcating obtuse marginals there is no disease. Right coronary artery: Moderate caliber vessel giving rise to a conus branch at its origin 2 small right ventricular branches in its midportion. At the AV groove it gives rise to a thin posterior sending artery. Along the AV groove gives rise to 3 small posterior ventricular branches. There are mild luminal regularities throughout the vasculature LV angiography: Not performed
--- NOTE | 2024-11-17 11:11 | Electrocardiogram Report ---
Test Reason : Blood Pressure : */* mmHG Vent. Rate : 68 BPM Atrial Rate : 68 BPM P-R Int : 154 ms QRS Dur : 84 ms QT Int : 414 ms P-R-T Axes : 22 41 -4 degrees QTcB Int : 440 ms Normal sinus rhythm Abnormal ECG When compared with ECG of 16-Nov-2024 05:50, No significant change was found Confirmed by Eladia Hendrix (Altaf) on 11/17/2024 11:11:26 AM Referred By: REFERRED SELF Confirmed By: Eladia Hendrix
--- NOTE | 2024-11-17 14:15 | Discharge Summary ---
Discharge Summary Date of Service November 17, 2024 Principal Dx & Hospital Course #1 = Principal Diagnosis (1) Unstable angina pectoris due to coronary arteriosclerosis: (2) Single vessel coronary artery disease: (3) LBBB (left bundle branch block): (4) Hyperlipidemia: Plan Patient presented to the emergency room with increasing chest pain and shortness of breath with exertion of the past few weeks. Patient was admitted to a monitored setting. Troponins were trended and were negative times all sets. Cardiology consultation was obtained for her history very consistent with unstable angina. Was evaluated by cardiology who recommended proceeding with diagnostic cardiac catheterization. Patient underwent cardiac catheterization, showed a significant LAD lesion which was subsequently stented. Post procedure she did have some chest pain this was treated with nitroglycerin and Integrilin. This resolved her chest pain and she was titrated off these medications. On the morning of discharge she did complain of a little bit of what sounds more like esophageal discomfort with eating. But no similar test no similar chest pain as to what she had upon presentation. She was up and ambulatory throughout the morning and had no chest pain or shortness of breath with ambulation. Her vital signs were stable. She was tolerating her current medical regimen she will be on dual antiplatelet therapy for at least 6 months. Was evaluated by cardiology and deemed to be able to be discharged home with outpatient follow-up with her providers. Notes For Next Care Provider Follow-up with cardiology Medication Changes From Visit Plavix Admission HPI Per Admitting Provider This is a 79 year old F who has a significant PMH of HLD, HTN, GERD who presents to ED 2/2 chest pain off and on over the last week. Pt reports CP off and on for the last week. SHe states today it was so severe and different that she wanted to get checked out. She denies hx of CAD and reports a normal stress test a few years ago. She describes it as a muscle spasm. Her pain this morning started when she was sitting at her desk paying bills. She got sweaty and pain that went from her chest to her neck/jaw and teeth. She did not notice any pain in her shoulder. She also feels a heavy/tight sensation. Today her sx lasted around 10 minutes. Sx did not last longer than 30 mins. She felt dizzy/lightheaded and SOB during the event. Pt received asa and nitropaste in the ED. She also took a SL nitro at home and sx improved. In ED she was hemodynamically stable. Her initial troponin was negative. EKG revealed NSR, LAD, LBBB. The LBBB is new compared to previous ECG. Currently in ED she denies chest pain. She has a slight headache from the nitro. She denies any recent f/c/s, cough, n/v/d, abd pain or change in her bowel and urinary habits. Most recently pt was tx with antibiotic and steroids due to illness. Hx was obtained from pt and external chart review. Admission Exam Per Admitting Provider See H&P Discharge Exam Constitutional: Alert, nontoxic HEENT: Mucous membranes moist. Lungs: Clear to auscultation, decreased, no wheezes rales or rhonchi CV: S1-S2, regular Abdomen: Soft, nontender, nondistended Extremities: No significant edema Neuro: No focal deficits Psych: Cooperative, normal mood Updated Medication List Medication Instructions Recorded Confirmed Type aspirin 81 mg tablet,delayed 81 mg PO HS 08/05/18 11/15/24 History release atorvastatin 40 mg tablet (Lipitor) 40 mg PO HS 08/05/18 11/15/24 History ezetimibe 10 mg tablet 10 mg PO HS 08/05/18 11/15/24 History multivitamin 1 tab PO HS 08/05/18 11/15/24 History pantoprazole 20 mg tablet,delayed 20 mg PO DAILYBB 08/05/18 11/15/24 History release albuterol sulfate 90 mcg/actuation 2 puff inhalation QID PRN 11/15/24 11/15/24 History aerosol inhaler Wheezing/Cough ascorbic acid (vitamin C) 500 mg 500 mg PO DAILY 11/15/24 11/15/24 History tablet (Vitamin C) calcium carbonate 500 mg PO DAILY 11/15/24 11/15/24 History cholecalciferol (vitamin D3) 25 25 mcg PO DAILY 11/15/24 11/15/24 History mcg (1,000 unit) tablet (Vitamin D3) methylprednisolone 4 mg tablet 4 mg PO DAILY 11/15/24 11/15/24 History metoprolol succinate 25 mg 25 mg PO HS 11/15/24 11/15/24 History tablet,extended release 24 hr montelukast 10 mg tablet 10 mg PO DAILY 11/15/24 11/15/24 History nitroglycerin 0.4 mg sublingual 0.4 mg sublingual DAILY PRN Chest 11/15/24 11/15/24 History tablet Pain/Pressure clopidogrel 75 mg tablet 75 mg PO QAM #30 tabs 11/17/24 Rx Hospital Stay Data Consultations 11/15/24 14:35 Consult Cardiology Routine 11/15/24 14:48 ED Decision to Admit Stat Procedures Performed Operation Date: 11/16/24 11:00 Actual Procedures p Cineradiography w/Routine Exam - Michael Maldonado MD p Cath, Coronaries ONLY (no LV) - Michael Maldonado MD p Drug Eluting Stent SGl Vessel - Jonatan Lemos MD, PhD Diagnostic Imagining Performed 11/16/24 06:35 CL Cath Imgs for PACS use only Routine Reviewed imaging, laboratory and diagnostic studies. Pertinent findings as below. Cardiac catheterization showed LAD 80% stenosis with subsequent stent placement Electrolytes all within normal limits BUN 0.87 Hemoglobin A1c 6.3% Total cholesterol 152 LDL 68 Triglycerides 180 HDL 48 Pending Results Patient Have Any Pending Studies at Discharge: No Discharge Instructions Given to Patient (Per Discharging Provider) Follow-up with cardiology as coordinated through their office Total Time Total Time Spent Total Time Spent (In Minutes): 35
== END 2024-11-17 16:23 | disposition home or self-care (01) ==
LOC: 4W 11:10 → ED 11:10 → SUATTDRO 14:04 → 4W 15:18
PROC: CLB.CCO (2024-11-16 11:00)